=== PATIENT | male | born 1945 | race Caucasian/White ===

== ENCOUNTER → 2023-08-22 09:50 | Outpatient (REF) | payer MEDICARE, SELFPAY ==
[2023-08-22 10:53] LABS: % Basophils 0.5 % (0-2); % Eosinophils 2.3 % (0-6); % Immature Granulocytes 0.6 % (0-0.5); % Lymphocytes 23.1 % (20.5-51.1); % Monocytes 8.3 % (1.7-9.3); % Neutrophils 65.2 % (42.2-75.2); Absolute Eosinophils 0.2 10^3/uL (0-0.7); Absolute Immature Granulocytes 0.1 10^3/uL (0-0.05); Absolute Monocytes 0.7 10^3/uL (0.1-0.6); Absolute Neutrophils 5.8 10^3/uL (1.4-6.5); Hematocrit 41.5 % (39.0-52.0); Hemoglobin 13.5 g/dL (13.0-18.0); Mean Corp Hgb Conc. 32.5 g/dL (33.0-37.0); Mean Corpuscular Hgb 27.9 pg (27.0-31.0); Mean Corpuscular Volume 85.7 fL (80.0-94.0); Nucleated Red Blood Cells % 0 % (-); Platelet Count 178 10^3/uL (130-400); Red Blood Cell Count 4.84 10^6/uL (4.70-6.10); Red Cell Dist. Width 14.1 % (11.5-14.5); White Blood Cell Count 8.8 10^3/uL (4.8-10.8)
[2023-08-22 11:05] LABS: ALT (SGPT) 20 U/L (0-50); AST (SGOT) 21 U/L (17-59); Albumin 3.8 g/dl (3.5-5.0); Alkaline Phosphatase 90 U/L (38-126); Blood Urea Nitrogen 17 mg/dl (9-20); Calcium 8.5 mg/dl (8.4-10.2); Carbon Dioxide 25 mmol/L (22-30); Chloride 106 mmol/L (98-107); Glucose 93 mg/dl (70-99); HDL Cholesterol 55 mg/dl; Iron 48 ug/dl (49-181); LDL Cholesterol, Calculated 64 mg/dl; Potassium 4.3 mmol/L (3.5-5.1); Sodium 137 mmol/L (135-145); Total Bilirubin 0.4 mg/dl (0.2-1.3); Total Cholesterol 132 mg/dl (50-199); Total Protein 6.1 g/dl (6.3-8.2); Triglyceride 66 mg/dl (10-149); Very Low Density Lipoprotein 13 mg/dl (0-30); eGFR > 60.00
[2023-08-22 11:15] LABS: Percent Saturation 16 % (20-50); Total Iron Binding Capacity 286 ug/dl (261-462)
[2023-08-22 15:34] LABS: Urine Albumin Negative (Neg - Trace); Urine Bilirubin Negative (Negative); Urine Character Clear (Clear); Urine Color Yellow; Urine Glucose Negative (Negative); Urine Ketone Negative (Negative); Urine Leukocyte Negative (Negative); Urine Nitrite Negative (Negative); Urine Occult Blood Negative (Negative); Urine Specific Gravity 1.025 (<1.030); Urine Urobilinogen Negative (Neg - 1+)
== END ==
LOC: OLABLV 09:50
PROVIDERS: ATTENDING PHYSICIAN Internal Medicine Geriatric Medicine
DX: I10 Essential (primary) hypertension (principal); N40.0 Benign prostatic hyperplasia without lower urinary tract symptoms; E78.2 Mixed hyperlipidemia; D50.9 Iron deficiency anemia, unspecified; R53.83 Other fatigue; F32.2 Major depressive disorder, single episode, severe without psychotic features; M25.552 Pain in left hip; Z13.31 Encounter for screening for depression; Z99.89 Dependence on other enabling machines and devices; R09.81 Nasal congestion
CPT/HCPCS: 36415; 80053; 80061; 81003; 82728; 83540; 83550; 85025

== ENCOUNTER → 2023-09-03 07:33 | Outpatient (REF) | payer MEDICARE, SELFPAY | LOC: RAD 07:33 | PROVIDERS: ATTENDING PHYSICIAN Neurological Surgery; FAMILY PHYSICIAN Internal Medicine Geriatric Medicine | DX: G91.2 (Idiopathic) normal pressure hydrocephalus (principal) | CPT/HCPCS: 70450 ==

== ENCOUNTER → 2023-10-09 13:18 | Outpatient (REF) | payer MEDICARE, SELFPAY | LOC: RAD 13:18 | PROVIDERS: ATTENDING PHYSICIAN Nurse Practitioner Family; FAMILY PHYSICIAN Internal Medicine Geriatric Medicine | DX: R05.3 Chronic cough (principal); R09.89 Other specified symptoms and signs involving the circulatory and respiratory systems | CPT/HCPCS: 71046 ==

== ENCOUNTER → 2024-05-23 10:37 | Outpatient (REF) | payer MEDICARE, SELFPAY ==
[2024-05-23 11:18] LABS: % Basophils 0.6 % (0-2); % Immature Granulocytes 0.4 % (0-0.5); % Lymphocytes 24.3 % (20.5-51.1); % Monocytes 7.4 % (1.7-9.3); % Neutrophils 63.3 % (42.2-75.2); Absolute Basophils 0.1 10^3/uL (0-0.2); Absolute Eosinophils 0.3 10^3/uL (0-0.7); Absolute Lymphocytes 2.1 10^3/uL (1.2-3.4); Absolute Monocytes 0.6 10^3/uL (0.1-0.6); Absolute Neutrophils 5.4 10^3/uL (1.4-6.5); Hematocrit 41.8 % (39.0-52.0); Hemoglobin 13.7 g/dL (13.0-18.0); Mean Corp Hgb Conc. 32.8 g/dL (33.0-37.0); Mean Corpuscular Hgb 28.8 pg (27.0-31.0); Mean Corpuscular Volume 87.8 fL (80.0-94.0); Mean Platelet Volume 9.6 fL (7.4-10.4); Nucleated Red Blood Cells % 0 % (-); Platelet Count 167 10^3/uL (130-400); Red Blood Cell Count 4.76 10^6/uL (4.70-6.10); Red Cell Dist. Width 13.5 % (11.5-14.5); White Blood Cell Count 8.6 10^3/uL (4.8-10.8)
[2024-05-23 11:39] LABS: ALT (SGPT) 17 U/L (0-50); AST (SGOT) 18 U/L (17-59); Albumin 3.8 g/dl (3.5-5.0); Alkaline Phosphatase 82 U/L (38-126); Blood Urea Nitrogen 15 mg/dl (9-20); Calcium 8.6 mg/dl (8.4-10.2); Carbon Dioxide 26 mmol/L (22-30); Chloride 103 mmol/L (98-107); Glucose 100 mg/dl (70-99); HDL Cholesterol 46 mg/dl; Iron 63 ug/dl (49-181); LDL Cholesterol, Calculated 57 mg/dl; Potassium 4.3 mmol/L (3.5-5.1); Sodium 137 mmol/L (135-145); Total Bilirubin 0.5 mg/dl (0.2-1.3); Total Cholesterol 115 mg/dl (50-199); Triglyceride 61 mg/dl (10-149); Very Low Density Lipoprotein 12 mg/dl (0-30); eGFR > 60.00
[2024-05-23 11:44] LABS: Vitamin D, 25-OH*** 63.6 ng/mL (30-80)
[2024-05-23 11:49] LABS: Percent Saturation 22 % (20-50); Total Iron Binding Capacity 283 ug/dl (261-462)
[2024-05-23 11:58] LABS: TSH Reflex To Free T4 2.05 uIU/ml (0.47-4.68)
== END ==
LOC: OLABLV 10:37
PROVIDERS: ATTENDING PHYSICIAN Nurse Practitioner Family
DX: I10 Essential (primary) hypertension (principal); N40.0 Benign prostatic hyperplasia without lower urinary tract symptoms; E78.2 Mixed hyperlipidemia; D50.9 Iron deficiency anemia, unspecified; R53.83 Other fatigue; F32.2 Major depressive disorder, single episode, severe without psychotic features; M25.552 Pain in left hip
CPT/HCPCS: 36415; 80053; 80061; 82306; 82728; 83540; 83550; 84443; 85025

== ENCOUNTER 2024-06-04 13:06 | Inpatient (IN) | payer OTHER, SELFPAY ==
[2024-06-04] VITALS (13 sets, daily range): BP systolic 90–132; BP diastolic 53–79; BMI 35.7; BMI 35.5
--- NOTE | 2024-06-04 09:39 | ED.GENMED ---
History of Present Illness
General
Chief Complaint: Breathing Problem
Source: patient
Exam Limitations: none
Time Seen by Provider: 06/04/24 09:33
Nursing documentation reviewed up to this point in time: agreed with
History of Present Illness
History of Present Illness:
Patient presents to ED from care home secondary to worsening cough with shortness of breath over the past 3 days. Upon arrival, patient is found to be febrile and hypoxic. Patient denies chest pain. Denies nausea, vomiting, or diarrhea.
Denies headache. Denies sore throat. Denies sick contact. Denies recent travel. Denies back pain. Patient does report decreased appetite.
Past History
Past History
ED Past Medical History: HTN, Hypercholesterolemia and Other (BPH)
ED Past Surgical History: None
Social History
Tobacco: Non-smoker
Alcohol: None
Drug: None
Living: assisted living
Review of Systems
Review of Systems
Allergies reviewed?: Yes
All Other Systems: ROS reviewed and negative except as documented in HPI and ROS
Constitutional: Reports fever
EENT: Reports no symptoms
Respiratory: Reports cough and trouble breathing
Cardiac: Reports no symptoms
ABD/GI: Reports no symptoms
Musculoskeletal: Reports no symptoms
Skin: Reports no symptoms
Neurological: Reports no symptoms
Phy Exam
Physical Exam
Physical Exam:
Physical Exam
General: moderate respiratory distress, not acutely ill. febrile
Head: nc/at. eomi
Neck: supple. no meningeal signs.
Heart: s1/s2 regular rate and rhythm, no murmur. equal radial pulses.
Lungs: moderate respiratory distress. diminished breath sounds bilaterally
Abdomen: normal bowel sounds. not tender.
Neuro: alert and oriented. no focal neurological deficits
Skin: no rash
Psychiatric: well kept. interactive and cooperative
Extremities: LE b/l nonpitting edema. no calf tenderness.
Scores
Heart Failure Risk
Heart Failure Risk Score: Not Applicable
Course
Orders/Labs/Results
Orders:
Orders
06/04/24 09:42
COVID-19 Antigen Urgent
Source: Nasal Swab
Complete Blood Count/With Diff Urgent
Manual Differential Urgent
NT-proBNP Urgent
Influenza A+B Rapid Molecular Urgent
MACKENZIE Source: Nasal Swab
Specimen Description:
Portable Chest Xray [CR Chest Portable - 1 View] Urgent
Comment:
Reason For Exam: sob
Reason Study Needs to be Portable: Unable to Transport
06/04/24 10:01
Acetaminophen [Tylenol] 650 mg PO NOW STA
06/04/24 10:02
Respiratory Syncytial Virus Urgent
MACKENZIE Source: Nasal Swab
Specimen Description:
Date Specimen was Collected: 06/04/24
Time Specimen was Collected: 09:44
06/04/24 10:03
Lactic Acid Q4H
Comment: CANCEL 2nd LACTIC ACID IF 1st LACTIC ACID IS LESS THAN 2
Blood Culture Q30M
MACKENZIE Source: Blood/Venous
Specimen Description:
Blood Culture Q30M
MACKENZIE Source: Blood/Venous
Specimen Description:
06/04/24 10:09
Guaifenesin/Codeine Solution [Robitussin AC] 10 ml PO NOW STA
Piperacillin/Tazo 3.375 Gram [Zosyn] 3.375 gram in 50 ml IV NOW
06/04/24 10:10
0.9% Sodium Chloride 500 ml [Nss] 500 ml IV BOLUS
06/04/24 10:19
Comprehensive Metabolic Panel Urgent
Magnesium Urgent
06/04/24 10:39
Vancomycin [Vancocin] 2,000 mg 0.9% Sodium Chloride 500 ml [Nss] 500 ml IV NOW
06/04/24 11:13
CT Chest PE Study Stat
Comment:
Reason For Exam: Progressive Hypoxia. Concern for PE.
06/04/24 12:26
Admit/Transfer Patient As Directed
Co-Sign Provider:
Level of Care: Inpatient admission
Assign to:: IMU- Intermediate Care
Physician / Group: Dr. Ko Lazaro/Hospitalists
Diagnosis: Acute Hypoxic Respiratory Failure
Reason for Hospitalization: Acute Hypoxic Respiratory Failure
Expected length of stay greater than two midnights?: Yes
ELOS- Estimated Length of Stay in days: 3
I certify the patient meets the requirements for IP care: Yes
06/04/24 12:30
Code Status As Directed
Resuscitation Status: Full Code
06/04/24 12:37
Sputum Culture [Respiratory Culture/Gram Stain] Stat
MACKENZIE Source: Sputum
Specimen Description:
06/04/24 12:54
PULMONARY CONSULT Routine
Consulting Provider: Leeroy Franco
Was physician already notified: Yes
Reason for consult: Hypoxic Respiratory Failure, high flow oxygen, bronchial narrowing
06/04/24 13:00
Guaifenesin [Mucinex] 1,200 mg PO Q12
06/04/24 14:00
Cefepime HCl [Maxipime] 2,000 mg IV Q8H
Abnormal Lab Results
06/04/24 06/04/24
09:42 10:19
WBC 19.1 H 10^3/uL
(4.8-10.8)
Abs Neuts (Manual) 18.1 H 10^3/uL
(1.4-6.5)
Segmented Neutrophils 87 H %
(42-75)
Band Neutrophils 8 H %
(0-3)
Lymphocytes (Manual) 1 L %
(20-51)
Glucose 146 H mg/dl
(70-99)
Total Bilirubin 2.2 H mg/dl
(0.2-1.3)
06/04/24 09:42
06/04/24 10:19
Vital Signs
Initial and Last Documented VS:
Initial Vital Signs
Pulse Resp Pulse Ox
115 39 88
06/04/24 09:35 06/04/24 09:35 06/04/24 09:35
Last Documented Vital Signs
Temp Pulse Resp BP Pulse Ox
99.9 F 82 24 100/65 95
06/04/24 14:16 06/04/24 16:00 06/04/24 16:00 06/04/24 16:00 06/04/24 16:00
MDM/Problems Addressed
MDM/Problems Addressed:
History, exam, and chest x-ray consistent with pneumonia. Patient's hypoxia improved on mid flow oxygen. Patient will be started on broad-spectrum antibiotics and admitted to hospital for further evaluation and treatment.
Due to worsening hypoxia during observation, patient will be switched to hi-flow oxygen.
Critical care statement: A total of 30 minutes of critical care time was provided for this patient. This includes management of unstable vital signs, evaluation of the patient at bedside, reviewing the patient's pertinent medical records, review of
old EKGs and review of pertinent medical records. This time with separate from time utilized to perform the aforementioned documented procedures
*Critical Care Note
Total Time (30-74mins, 75-104mins- exclusive of procedures): 30 min
ED Attending Note
-
Portions of this chart may have been created with voice recognition software.� Occasional wrong word or��sound alike� substitutions may have occurred due to the inherent limitations of voice recognition software.
Discharge Plan
Departure
Patient Disposition: Admit
Date of Disposition: 06/04/24
Time of Disposition: 10:34
Admit to: IMU
Presentation/result/management discussed w/ accepting MD/DO: Hospitalist
Discharge Problem:
Pneumonia, Hypoxia
Interventions
Interventions:
*Risk Screen - Suicide Last Done: 06/04/24 09:47
*General Assessment Last Done: 06/04/24 09:46
*Neglect/Abuse Screening Last Done: 06/04/24 09:46
ED- Fall Risk Assessment Last Done: 06/04/24 09:46
*ED COVID-19 Vaccine History Last Done: 06/04/24 09:46
ED- Cardiac Assessment Last Done: 06/04/24 10:00
ED- Pulmonary Assessment Last Done: 06/04/24 10:00
[2024-06-04 10:10] LABS: Hematocrit 42.9 % (39.0-52.0); Hemoglobin 14.6 g/dL (13.0-18.0); Mean Corpuscular Hgb 28.7 pg (27.0-31.0); Mean Corpuscular Volume 84.4 fL (80.0-94.0); Mean Platelet Volume 9.8 fL (7.4-10.4); Platelet Count 136 10^3/uL (130-400); Red Blood Cell Count 5.08 10^6/uL (4.70-6.10); Red Cell Dist. Width 13.5 % (11.5-14.5); White Blood Cell Count 19.1 10^3/uL (4.8-10.8)
[2024-06-04 10:21] LABS: NT-proBNP 214 pg/ml
[2024-06-04 10:24] LABS: COVID-19 Antigen Negative (Negative)
[2024-06-04 10:27] LABS: Absolute Neutrophils -Man Diff 18.1 10^3/uL (1.4-6.5); Band Neutrophils 8 % (0-3); Lymphocytes 1 % (20-51); Monocytes 4 % (2-9); Normal RBC Morphology Yes; Platelets Checked Yes; Segmented Neutrophils 87 % (42-75); Total Cells Counted 100
[2024-06-04] MEDS: ROBITUSSIN AC 10 ML PO (10:33)
[2024-06-04] MEDS: NSS 500 IV (10:33)
[2024-06-04] MEDS: TYLENOL 650 MG PO (10:33)
[2024-06-04] MEDS: ZOSYN 50 IV (10:35)
[2024-06-04 10:41] LABS: Lactic Acid 1.8 mmol/L (0.7-2.0)
[2024-06-04 10:42] LABS: ALT (SGPT) 17 U/L (0-50); AST (SGOT) 20 U/L (17-59); Albumin 3.9 g/dl (3.5-5.0); Alkaline Phosphatase 98 U/L (38-126); Blood Urea Nitrogen 18 mg/dl (9-20); Calcium 8.6 mg/dl (8.4-10.2); Carbon Dioxide 24 mmol/L (22-30); Chloride 99 mmol/L (98-107); Estimated Creatinine Clearance 61 ml/min; Glucose 146 mg/dl (70-99); Magnesium 2.2 mg/dl (1.6-2.3); Potassium 3.8 mmol/L (3.5-5.1); Sodium 137 mmol/L (135-145); Total Bilirubin 2.2 mg/dl (0.2-1.3); Total Protein 6.5 g/dl (6.3-8.2); eGFR > 60.00
--- NOTE | 2024-06-04 11:15 | HPS.HSE ---
Family Physician
-
Family Physician: Theo Adhikari
Chief Complaint
-
Cough and shortness of breath
History of Present Illness
78 y/o male with past medical history of hypertension, hypercholesterolemia, prostate cancer, benign prostatic hyperplasia, overactive bladder, urinary incontinence, normal pressure hydrocephalus (was followed by Dr. Ashley Reno outpatient), and
depression presented to the emergency department with worsening cough and shortness of breath over the past ~3 days prior to arrival. Patient was found to be hypoxic and febrile. Patient's brother Luis Eduardo was present in the emergency room and assisted
with the history. Luis Eduardo said patient had come from his [place] [facility] facility to his (Luis Eduardo') home 3 days ago to spend time with family, and then returned not too long after. Someone in the family gathering was sick per Luis Eduardo. Patient says he was feeling a
little sick over the weekend, but his cough and shortness of breath was developing and today it became worse prompting him to come to the ER. He denied any history of pulmonary or cardiac disease. He denied any chest pain, dizziness, loss of
consciousness or pain or swelling in his legs.
Medical History
Past Medical History
Past Medical History: Reports Other (As per HPI above)
Past Surgical History: Reports Orthopedic (Bilateral Hip Replacement)
Social History
Tobacco: Former Smoker (Smoked Pipe for 30 years, quit many years ago)
Alcohol: Occasional
Drug: None
Family History
Family History: Not pertinent
Allergies / Home Medications
Allergies reflects when Allergies were last updated in [employer].
Home Medications with original date entered in [employer]
Allergy/Medication List:
Allergies
Allergy/AdvReac Type Severity Reaction Status Date / Time
No Known Allergies Allergy Verified 06/04/24 09:46
Home Medications
silodosin 8 mg capsule (Rapaflo) 8 mg PO DAILY Urinary issue 12/16/19
acetaminophen 325 mg tablet 650 mg PO Q4H PRN fever 04/23/21
atorvastatin 40 mg tablet 40 mg PO Q48H High cholesterol 04/23/21
sertraline 50 mg tablet 50 mg PO DAILY Depression 04/23/21
bupropion HCl 150 mg 24 hr tablet, extended release (Wellbutrin XL) 150 mg PO DAILY Depression 05/08/22
ferrous sulfate 325 mg (65 mg iron) tablet 325 mg PO DAILY Supplement 05/08/22
loperamide 2 mg tablet 4 mg PO PRN PRN DIARRHEA 05/08/22
psyllium husk 0.52 gram capsule 0.52 g PO BID Constipation 05/08/22
cyanocobalamin (vitamin B-12) 1,000 mcg tablet (Vitamin B-12) 2,000 mcg PO DAILY Supplement 05/24/22
cholecalciferol (vitamin D3) 25 mcg (1,000 unit) tablet 50 mcg PO DAILY 07/14/22
cetirizine 10 mg tablet (Zyrtec) 10 mg PO HS 06/04/24
docusate sodium 100 mg capsule 100 mg PO BIDPRN PRN constipation 06/04/24
finasteride 5 mg tablet 5 mg PO DAILY 06/04/24
guaifenesin 600 mg tablet, extended release 12 hr (Mucinex) 600 mg PO DAILY 06/04/24
ipratropium bromide 21 mcg (0.03 %) nasal spray 2 spray intranasal BID 06/04/24
losartan 25 mg tablet 25 mg PO QPM 06/04/24
polyethylene glycol 3350 17 gram oral powder packet (Miralax) 17 g PO DAILYPRN PRN constipation 06/04/24
sodium chloride 0.65 % nasal spray aerosol (Saline Nasal Mist) 2 spray intranasal QID 06/04/24
triamcinolone acetonide 0.1 % topical cream 1 applic topical BIDPRN PRN ear eczema 06/04/24
Review of Systems
-
A 12 point ROS was completed and negative except as noted: Yes
Physical Exam
Vital Signs
Vital Signs
Temp Pulse Resp BP Pulse Ox
103.3 F H 112 28 125/74 80
06/04/24 10:02 06/04/24 10:30 06/04/24 10:30 06/04/24 10:00 06/04/24 10:30
Physical Exam
General: Respiratory Distress
HEENT: NormoCephalic and Moist mucous membranes
Respiratory: Rhonchi (Right>Left)
Cardiac: S1/S2, Regular Rhythm and Tachycardia
GI: Soft, Non Tender and Normal Bowel Sounds
Musculoskeletal: No Cyanosis and No Edema
Skin: Warm and Dry
Neuro: Awake, Alert and AO x 3
Psych: Calm and Intact Judgment/Insight
Laboratory Results
-
06/04/24 09:42
06/04/24 10:19
Laboratory Results
Lactic Acid 1.8 mmol/L (0.7-2.0) 06/04/24 10:03
Total Bilirubin 2.2 mg/dl (0.2-1.3) H 06/04/24 10:19
AST 20 U/L (17-59) 06/04/24 10:19
ALT 17 U/L (0-50) 06/04/24 10:19
Alkaline Phosphatase 98 U/L (38-126) 06/04/24 10:19
Impression/Plan
-
Assessment/Plan
Acute Hypoxic Respiratory Failure
Concern for Pneumonia
Fever
-Requiring high flow oxygen in the ED
-Chest X-Ray per radiologist's report suggested right basilar airspace opacity concerning for pneumonia and possible small right pleural fluid
-Vancomycin and Zosyn ordered in the ER, continue Vanc but start Cefepime instead of continuing Zosyn
-Check CT PE
-Sputum culture
-Aspiration Precautions
-Mucinex
-Duoneb QID+prn nebulized bronchodilators will consider inhaled hypertonic saline
-Given patient is needing a high flow oxygen with use of accessory muscles, will place patient in IMU and consult pulmonary, appreciate their recommendations
Dyspnea on Exertion for Months
-As reported by patient's brother Michael
-Echo, although proBNP was quite low
-Will likely need stress test and PFTs/pulmonary evaluation outpatient
History of Influenza A infection
Essential hypertension
-Currently blood pressure is in the 90s to low 100s systolic
-Hold off on home Losartan for now
Hypercholesterolemia
-Continue home Atorvastatin
Depression
-Continue Bupropion and Sertraline
BPH
History of Prostate Cancer
-Continue Rapaflo and Finasteride
Normal pressure hydrocephalus (was being followed by Dr. Ashley Reno outpatient)
-MEDICAL DETAILIST shunt in place (present on chest x-ray)
Overactive bladder
History of urinary incontinence
Depression
Code status: Full Code (I confirmed this with patient's brother Michael in the presence of the patient)
DVT prophylaxis: Lovenox
Acute Hypoxic Respiratory Failure needing high-flow oxygen is a high-risk encounter.
[2024-06-04] MEDS: VANCOCIN 540 MG IV (11:35)
[2024-06-04] MEDS: MUCINEX 1200 MG PO ×2 (14:06→20:12)
--- NOTE | 2024-06-04 14:23 | PHA.VAN.IN ---
Assessment
- Assessment
Renal Function: Appears similar to baseline
Renal Function may be Overestimated due to: BMI 36
Maximum Temperature: 103.3 - 06/04/24 @ 10:02
Concomitant Antimicrobials: cefepime
AUC Dosing Plan
- Dosing Variables
Dosing Weight (kg): 91.4
Dosing CrCl (ml/min): 61
Vd coefficient (L/kg): 0.6
- Empiric Dosing
Initial / Loading Dose: 2000 mg - 06/04 11:35
Maintenance Regimen: 1500 mg q24h to start 0600 06/05
Estimated AUC (mcg*h/mL): 518
Estimated Peak (mcg*h/mL): 37.3
Estimated Trough (mcg/ml): 10.8
Estimated Half Life (H): 12.6
- Monitoring
No levels ordered at this time: consider levels as pt nears steady state
Pharmacokinetics Vancomycin I
- -
Patient Age: 78
Patient Sex: Male
Vancomycin Day #: 1
Indication: Pulmonary/Respiratory
Requesting Provider: Roman
Height / Weight:
Height 5 ft 3 in
Actual Weight 91.4 kg
Pertinent Past Medical History: BMI ~36
- Vital Signs / Lab Results
Temp Pulse Resp BP Pulse Ox
99.9 F 87 15 99/79 94
06/04/24 14:16 06/04/24 13:30 06/04/24 13:30 06/04/24 13:00 06/04/24 14:16
Lab Results - Hematology
06/04/24
09:42
WBC 19.1 H
Band Neutrophils 8 H
Lab Results - Chemistry
06/04/24 06/04/24
09:42 10:19
BUN Cancelled 18
Creatinine Cancelled 1.0
Estimated Creat Clear Cancelled 61
Albumin Cancelled 3.9
06/04/24
10:03
Lactic Acid 1.8
Microbiology Results
06/04/24 10:02 Respiratory Syncytial Virus Culture - Final
Nasal Swab Negative for Respiratory Syncytial Virus.
A false negative result may be obtained with a specimen
collected early in the acute phase. If symptoms persist, a
new specimen should be tested.
06/04/24 09:42 Influenza Types A & B (FRANNY) - Final
Nasal Swab Negative for Influenza A & B, NAAT
Negative results must be combined with clinical observations
and patient history.
Nucleic Acid Amplification test (NAAT)performed on the
[employer] platform.
[2024-06-04 14:34] LABS: Venous Blood Gas B.E. -2.4 mmol/L (-4 to +4); Venous Blood Gas HCO3 24.2 mmol/L (22-27); Venous Blood Gas O2 Sat % 90.8 %; Venous Blood Gas pCO2 48 mmHg (35-48); Venous Blood Gas pH 7.31 (7.32-7.43); Venous Blood Gas pO2 58 mmHg (30-50)
[2024-06-04] MEDS: MAXIPIME 2000 MG IV ×2 (15:15→22:08)
[2024-06-04] MEDS: STERILE WATER FOR INJECTION 10 ML IV ×2 (15:15→22:08)
[2024-06-04] MEDS: DUONEB INH (18:05)
--- NOTE | 2024-06-04 18:31 | CON.PUL ---
Consultation
Consultation Request
Date/Time Consultation Requested: 06/04/2024
Date/Time Consultation Performed: 06/04/2024
Requesting Provider: Dr. Garcia
Performing Provider: Dr. Leeroy Vaughan
Reason for Consultation: acute hypoxemic respiratory failure due to pneumonia
Medical History
-
History of Present Illness:
78-year-old male with past medical history significant for hypertension, hypercholesterolemia, prostate cancer, benign BPH, overactive bladder, urinary incontinence, normal pressure hydrocephalus and depression who presented to the emergency room
with worsening cough and shortness of breath for the past 3 days. Found to be febrile and hypoxemic. Has leukocytosis.
Patient required high flow oxygen to maintain pulse ox above 90%.
Due to worsening respiratory symptoms and shortness of breath he decided to come to the emergency room.
CT chest chest demonstrated significant pneumonia with mediastinal lymphadenopathy.
[facility]
Past Medical History
Past Medical History: Other ( See assessment and plan)
Social History
Tobacco: Former Smoker (Pipe, many years ago)
Alcohol: Occasional
Drug: None
Family History
Family History: Reviewed & Not Pertinent
Allergies / Home Medications
Allergies
Allergy/AdvReac Type Severity Reaction Status Date / Time
No Known Allergies Allergy Verified 06/04/24 09:46
Home Medications
�Medication �Instructions �Recorded �Confirmed �Last Taken �Type
silodosin 8 mg capsule (Rapaflo) 8 mg PO DAILY Urinary issue 12/16/19 06/04/24 07/14/22 History
acetaminophen 325 mg tablet 650 mg PO Q4H PRN fever 04/23/21 06/04/24 Unknown History
atorvastatin 40 mg tablet 40 mg PO Q48H High cholesterol 04/23/21 06/04/24 07/13/22 History
sertraline 50 mg tablet 50 mg PO DAILY Depression 04/23/21 06/04/24 07/14/22 History
bupropion HCl 150 mg 24 hr tablet, 150 mg PO DAILY Depression 05/08/22 06/04/24 07/14/22 History
extended release (Wellbutrin XL)
ferrous sulfate 325 mg (65 mg 325 mg PO DAILY Supplement 05/08/22 06/04/24 07/14/22 History
iron) tablet
loperamide 2 mg tablet 4 mg PO PRN PRN DIARRHEA 05/08/22 06/04/24 07/14/22 History
psyllium husk 0.52 gram capsule 0.52 g PO BID Constipation 05/08/22 06/04/24 07/14/22 History
cyanocobalamin (vitamin B-12) 2,000 mcg PO DAILY Supplement 05/24/22 06/04/24 07/14/22 History
1,000 mcg tablet (Vitamin B-12)
cholecalciferol (vitamin D3) 25 50 mcg PO DAILY Supplement 07/14/22 06/04/24 07/14/22 History
mcg (1,000 unit) tablet
cetirizine 10 mg tablet (Zyrtec) 10 mg PO HS Allergies 06/04/24 06/04/24 Unknown History
docusate sodium 100 mg capsule 100 mg PO BIDPRN PRN constipation 06/04/24 06/04/24 Unknown History
finasteride 5 mg tablet 5 mg PO DAILY prostate issues 06/04/24 06/04/24 Unknown History
guaifenesin 600 mg tablet, 600 mg PO DAILY Congestion 06/04/24 06/04/24 Unknown History
extended release 12 hr (Mucinex)
ipratropium bromide 21 mcg (0.03 2 spray intranasal BID Congestion 06/04/24 06/04/24 Unknown History
%) nasal spray
losartan 25 mg tablet 25 mg PO QPM Blood Pressure 06/04/24 06/04/24 Unknown History
polyethylene glycol 3350 17 gram 17 g PO DAILYPRN PRN constipation 06/04/24 06/04/24 Unknown History
oral powder packet (Miralax)
sodium chloride 0.65 % nasal spray 2 spray intranasal QID Congestion 06/04/24 06/04/24 Unknown History
aerosol (Saline Nasal Mist)
triamcinolone acetonide 0.1 % 1 applic topical BIDPRN PRN ear 06/04/24 06/04/24 Unknown History
topical cream eczema
Review of Systems
-
History Source: Patient
All other systems: Negative unless noted
Vitals / Labs / Diagnostic Testing
Vital Signs
Temp Pulse Resp BP Pulse Ox
99.6 F 85 23 106/68 95
06/04/24 18:10 06/04/24 18:07 06/04/24 18:07 06/04/24 18:07 06/04/24 18:21
Lab Data
06/04/24 09:42
06/04/24 10:19
Microbiology
06/04/24 10:02 Nasal Swab Respiratory Syncytial Virus Culture - Final
Negative for Respiratory Syncytial Virus.
A false negative result may be obtained with a specimen
collected early in the acute phase. If symptoms persist, a
new specimen should be tested.
06/04/24 09:42 Nasal Swab Influenza Types A & B (FRANNY) - Final
Negative for Influenza A & B, NAAT
Negative results must be combined with clinical observations
and patient history.
Nucleic Acid Amplification test (NAAT)performed on the
[employer] platform.
Diagnostic Testing:
Physical Exam
-
HEENT: Normocephalic
Cardiovascular: S1/S2
Respiratory: Wheeze (n) and Rales
GI: Soft and Non Distended
Neurology: Awake, Oriented and AO x 3
Skin: Warm
General: Respiratory Distress (Mild with activity and conversation)
Assessment
-
Acute hypoxemic respiratory failure requiring Midflow 12L and partial NRB mask.
Severe bilateral pneumonia
Abnormal CT chest: Reviewed, moderate bilateral pneumonia right greater than left, no significant pleural effusion. Moderate mediastinal and right hilar lymphadenopathy reactive versus malignant. Central bronchial narrowing secondary to extrinsic
compression by hilar lymphadenopathy.
Leukocytosis
Conditions present prior admission.
Hypercholesterolemia
Hypertension
History of prostate cancer
BPH
Overactive bladder
Urinary incontinence
Normal pressure hydrocephalus
Depression
History of bilateral hip replacement
Smoked pipe 30 years ago but quit many years ago
Assessment and plan:
Respiratory status is tenuous
Patient is on mid flow [id number] pulse ox at rest 94%, mild distress with conversation-maintain FiO2 to keep pulse ox above 90%
CT of the chest showed extensive bilateral pneumonia with mediastinal hilar lymphadenopathy.
Clinical picture suggest bacterial pneumonia
-
Agree with broad-spectrum antibiotics vancomycin/Zosyn. Will add atypical coverage as well
Influenza negative
COVID-negative
Obtain Legionella and pneumococcal antibodies in the urine
Sputum culture
Blood culture
-
Secretion clearance interventions with nebulizer
Acapella device if possible
Mucinex
-
Patient will need pulmonary follow-up to evaluate mediastinal lymphadenopathy is once pneumonia is treated.
Will need short-term repeat CT chest
Information will be left in chart
-
Cardiac etiology not highly suspected. Echocardiogram has been ordered.
EKG reviewed, normal sinus rhythm. LVH cannot rule out anterior infarct.
proBNP in the 200's
Troponin pending
-
Patient also has reported dyspnea for many months. Will need to be addressed in the future.
-
Will follow
[2024-06-04] MEDS: LOVENOX 40 MG SC (18:38)
[2024-06-04] MEDS: OCEAN, SALINE MIST 1 SPRAYS NASAL ×2 (18:38→22:08)
--- NOTE | 2024-06-04 19:02 | PTCARENOTE ---
Received pt from ED, pulled over to bed. AOx3. Denies pain. On PNRB 15L, placed on 12L midflow, sating 94%. LS coarse throughout. Occ cough, specimen cup given for sample, not produced yet. Pt reports green/yellow sputum. VSS. Full assessment and
admission as documented.
[2024-06-04] MEDS: ZITHROMAX INFUSION 250 IV (19:15)
[2024-06-04] MEDS: DUONEB 3 ML INH (19:25)
[2024-06-04 19:37] LABS: Troponin I 0.035 ng/ml
[2024-06-04] MEDS: METAMUCIL, KONSYL 1 PACKET PO (20:11)
[2024-06-04] MEDS: LIPITOR 40 MG PO (20:12)
[2024-06-05] VITALS (10 sets, daily range): BP systolic 104–150; BP diastolic 58–130
[2024-06-05 01:08] LABS: Troponin I 0.023 ng/ml
[2024-06-05] MEDS: VANCOCIN 530 MG IV (05:42)
[2024-06-05] MEDS: STERILE WATER FOR INJECTION 10 ML IV ×3 (05:44→21:47)
[2024-06-05] MEDS: MAXIPIME 2000 MG IV ×3 (05:44→21:46)
--- NOTE | 2024-06-05 06:12 | PTCARENOTE ---
Received pt at change of shift. AAOx3, forgetful at times. Currently on 12L MF; STEWART and at rest. Sputum sample sent to lab. Trop elevated and reported to NOHEMI. Follow up trops completed. Pt offers no complaints at this time. Resting in bed
with call hernandez in reach.
[2024-06-05 06:25] LABS: % Basophils 0.3 % (0-2); % Eosinophils 0.5 % (0-6); % Immature Granulocytes 0.7 % (0-0.5); % Neutrophils 85.5 % (42.2-75.2); Absolute Eosinophils 0.1 10^3/uL (0-0.7); Absolute Immature Granulocytes 0.1 10^3/uL (0-0.05); Absolute Lymphocytes 1.2 10^3/uL (1.2-3.4); Absolute Monocytes 0.8 10^3/uL (0.1-0.6); Absolute Neutrophils 12.9 10^3/uL (1.4-6.5); Hematocrit 37.3 % (39.0-52.0); Hemoglobin 12.2 g/dL (13.0-18.0); Mean Corp Hgb Conc. 32.7 g/dL (33.0-37.0); Mean Corpuscular Hgb 28.4 pg (27.0-31.0); Mean Corpuscular Volume 86.9 fL (80.0-94.0); Mean Platelet Volume 9.8 fL (7.4-10.4); Nucleated Red Blood Cells % 0 % (-); Platelet Count 130 10^3/uL (130-400); Red Blood Cell Count 4.29 10^6/uL (4.70-6.10); Red Cell Dist. Width 13.6 % (11.5-14.5); White Blood Cell Count 15.1 10^3/uL (4.8-10.8)
[2024-06-05 06:44] LABS: Blood Urea Nitrogen 15 mg/dl (9-20); Calcium 8.1 mg/dl (8.4-10.2); Carbon Dioxide 23 mmol/L (22-30); Chloride 103 mmol/L (98-107); Estimated Creatinine Clearance 87 ml/min; Glucose 110 mg/dl (70-99); Magnesium 2.5 mg/dl (1.6-2.3); Potassium 3.9 mmol/L (3.5-5.1); Sodium 136 mmol/L (135-145); eGFR > 60.00
[2024-06-05 06:45] LABS: Troponin I 0.021 ng/ml
[2024-06-05] MEDS: DUONEB 3 ML INH ×4 (07:18→19:26)
[2024-06-05] MEDS: ZOLOFT 50 MG PO (08:13)
[2024-06-05] MEDS: FLOMAX 0.4 MG PO (08:13)
[2024-06-05] MEDS: METAMUCIL, KONSYL 1 PACKET PO ×2 (08:13→20:18)
[2024-06-05] MEDS: VITAMIN B-12 2000 MCG PO (08:13)
[2024-06-05] MEDS: FEOSOL 325 MG PO (08:13)
[2024-06-05] MEDS: WELLBUTRIN XL (24 hour extended release) 150 MG PO (08:13)
[2024-06-05] MEDS: PROSCAR 5 MG PO (08:13)
[2024-06-05] MEDS: VITAMIN D3 (cholecalciferol) 50 MCG PO (08:13)
[2024-06-05] MEDS: MUCINEX 1200 MG PO ×2 (08:14→20:18)
[2024-06-05] MEDS: OCEAN, SALINE MIST NASAL ×5 (08:15→21:47)
--- NOTE | 2024-06-05 08:56 | W.PN.PUL3 ---
Today's Communication / Plan
-
Antibiotics for total of 7 days assuming he continues to clinically improve and remains afebrile for 48 hours prior to stopping
DuoNebs; start budesonide
Nasal spray
Aspiration precautions
Wean down supplemental O2 to keep SpO2 >90-94%
Outpatient PFTs
Radiographic surveillance as an outpatient to assure pneumonia resolves
Pulmonary service will continue to follow along
Assessment
-
Impression:
Acute hypoxemic respiratory failure requiring Midflow 12L and partial NRB mask --> now down to 7L/min midflow
Severe bilateral pneumonia
Abnormal CT chest: Reviewed, moderate bilateral pneumonia right greater than left, no significant pleural effusion. Moderate mediastinal and right hilar lymphadenopathy reactive versus malignant. Central bronchial narrowing secondary to extrinsic
compression by hilar lymphadenopathy.
Leukocytosis
Conditions present prior admission.
Hypercholesterolemia
Hypertension
History of prostate cancer
BPH
Overactive bladder
Urinary incontinence
Normal pressure hydrocephalus
Depression
History of bilateral hip replacement
Smoked pipe 30 years ago but quit many years ago
Assessment and plan:
Respiratory status is improving
Patient was on mid flow [id number] pulse ox at rest 94%, mild distress with conversation-maintain FiO2 to keep pulse ox above 90% --> now on 7L/min midflow and improved SOB
CT of the chest showed extensive bilateral pneumonia with mediastinal hilar lymphadenopathy.
Clinical picture suggest bacterial pneumonia
Check procal for trending power
-
Agree with broad-spectrum antibiotics vancomycin/cefepime/zithromax s/p zosyn
Influenza + RSV negative
COVID-negative
Negative Legionella and pneumococcal urine antigens
Sputum culture collected 06/04/2024 shows NGTD
Blood culture collected 06/04/2024 shows NGTD
-
Secretion clearance interventions with nebulizer
Acapella device if possible
Mucinex
Continue DuoNebs QID + add budesonide
-
Patient will need pulmonary follow-up to evaluate mediastinal lymphadenopathy is once pneumonia is treated.
Will need short-term repeat CT chest
Information will be left in chart
-
Cardiac etiology not highly suspected. Echocardiogram has been ordered.
EKG reviewed, normal sinus rhythm. LVH cannot rule out anterior infarct.
proBNP in the 200's
Troponin peaked at 0.035 on 06/04/2024 � no longer need to continue trending at this time
-
Patient also has reported dyspnea for many months. Will need to be addressed in the future.
-
Will follow
Total time spent today was 38 minutes for this encounter. Time includes reviewing laboratory test/imaging results, reviewing pertinent medical records, obtaining and reviewing medical history, performing an appropriate exam, ordering medications,
tests and procedures. Time also includes documentation of this encounter, coordinating patient care and communicating with other healthcare professionals. Total time does not include separately billed tests performed on this date of service.
Subjective Data
-
Date of Service:
Date of Service: June 05, 2024
Chief Complaint: Pulmonary Follow Up
Subjective:
Patient seen and evaluated today at bedside. Still coughing up yellow/green phlegm. Bringing up his phlegm without issue. Also endorses shortness of breath and chest discomfort, that he says is from the coughing. Currently, heart rate 82,
saturating 95% on 7 L/min midflow and BP 130/67. He denies VELOZ, abdominal pain, nausea, fevers or chills.
Review of Systems
General: Other (Negative unless mentioned above)
Objective Data
Data Reviewed
Vital Signs / I&O / Oxygen:
Vital Signs
Temp Pulse Resp BP Pulse Ox
98.2 F 77 18 113/61 95
06/05/24 07:22 06/05/24 07:18 06/05/24 07:18 06/05/24 02:00 06/05/24 07:18
Intake and Output
0106/05/24 06/06/24
06:59 06:59 06:59
Intake Total 490 / 490
Output Total 425 / 425 400 / 400
Balance 65 / 65 -400 / -400
SaO2 95
Nasal Cannula flow liters per 12
minute
Physical Exam
General: Respiratory Distress (negative), Comfortable, Chills (negative) and Sweats (negative)
HEENT: Normocephalic and Anicteric
Cardiovascular: S1-S2 and Peripheral Edema (negative)
Respiratory: Wheeze (Bilaterally), Crackles (Bilaterally), Rhonchi (negative) and Non-Labored Respirations
GI: Soft, Distended (Abdominal obesity), Non Tender and Normal Bowel Sounds
Neurology: AO x 3 and Tremors (negative)
Skin: Warm, Dry, Cyanosis (negative) and Jaundice (negative)
Labs/Micro/Reports
Lab Data
06/05/24 06:03
06/05/24 06:03
Microbiology
06/04/24 23:56 Urine Legionella Urinary Antigen - Final
Negative for Legionella pneumophila Serogroup 1 antigen.
A negative result does not rule out the possiblity of
Legionella infection due to other serogroups or species of
Legionella. Clinical correlation is recommended.
06/04/24 23:56 Urine Streptococcus pneumoniae Antigen (M - Final
Negative for Streptococcus pneumoniae antigen.
A negative result does not exclude infection with
Streptococcus pneumoniae. Clinical correlation is
recommended.
06/04/24 14:09 Nose Nasal Screen MRSA (PCR) - Final
MRSA not detected - performed by PCR methodology.
06/04/24 10:02 Nasal Swab Respiratory Syncytial Virus Culture - Final
Negative for Respiratory Syncytial Virus.
A false negative result may be obtained with a specimen
collected early in the acute phase. If symptoms persist, a
new specimen should be tested.
06/04/24 09:42 Nasal Swab Influenza Types A & B (FRANNY) - Final
Negative for Influenza A & B, NAAT
Negative results must be combined with clinical observations
and patient history.
Nucleic Acid Amplification test (NAAT)performed on the
[employer] platform.
--- NOTE | 2024-06-05 12:15 | CM ---
Addendum entered by Josseline Garcia RN 06/05/24 12:32:
Plan watch for home O2 needs.
Plan follow up after seen by PT/OT.
Original Note:
Patient from [facility]. O2 10L midflow. Receiving IV Abx. Per nurse assessment; forgetful.
Spoke with Nydia Keith, [facility] (cell [phone]); the patient resides alone at [facility].
He is mostly independent in ADLs and ambulation, mostly using his SPC and sometimes using his RW.
DME - RW, SPC, he has no home O2 or CPAP.
No prior VN or SNF.
PCP - Theo Adhikari
Pharmacy - [facility]
If plan is for patient to return directly to [facility], call Nydia Cardona, otherwise the ph for nurse report is [phone], fax [phone].
Nydia is asking for patient to be seen by PT/OT while here to determine disposition.
Message to Dr Lazaro requesting PT/OT Evals when medically appropriate.
Plan follow up after seen by PT/OT.
--- NOTE | 2024-06-05 13:54 | W.PN.HOSP.TC ---
Today's Communication/Plan
-
Continue oxygen support, wean as tolerated
Continue antibiotics
Assessment / Plan
Assessment / Plan
Physical Exam
General: Not in acute distress
HEENT: Normocephalic and Moist mucous membranes
Respiratory: Rhonchi (Right>Left)
Cardiac: S1/S2, Regular Rhythm and Regular Rate
GI: Soft, Non Tender and Normal Bowel Sounds
Musculoskeletal: No Cyanosis and No Edema
Skin: Warm and Dry
Neuro: Awake, Alert and AO x 3
Psych: Calm and Intact Judgment/Insight
Assessment/Plan
Acute Hypoxic Respiratory Failure
Concern for Pneumonia
Fever
-Required high flow oxygen in the ED --> now down to 6 L midflow nasal cannula
-CT PE study showed no PE, but did show bronchial narrowing, lymphadenopathy, and moderate bilateral pneumonia
-Vancomycin stopped as MRSA negative
-Continue Cefepime and Azithromycin
-Sputum culture pending
-Aspiration Precautions
-Mucinex
-Duoneb QID+prn nebulized bronchodilators will consider inhaled hypertonic saline
-Continue monitoring in IMU
-Given CT findings (including lymphadenopathy compressing airways, and the need for high-flow oxygen on admission), consulted pulmonary
Dyspnea on Exertion for Months
-As reported by patient's brother Michael
-proBNP was quite low
-Will likely need stress test and PFTs/pulmonary evaluation outpatient
History of Influenza A infection
Essential hypertension
-Blood pressure was in the 90s to low 100s systolic, now improved to normal range
-Hold off on home Losartan for now
Hypercholesterolemia
-Continue home Atorvastatin
Depression
-Continue Bupropion and Sertraline
BPH
History of Prostate Cancer
-Continue Rapaflo and Finasteride
Normal pressure hydrocephalus (was being followed by Dr. Ashley Reno outpatient)
-HIGH PRESSURE CLEANER shunt in place (present on chest x-ray)
Overactive bladder
History of urinary incontinence
Depression
Code status: Full Code (I confirmed this with patient's brother Michael in the presence of the patient)
DVT prophylaxis: Lovenox
Acute Hypoxic Respiratory Failure needing high-flow oxygen is a high-risk encounter.
Anticipated Discharge: > 48 hours
Subjective/Interval History
-
Date of Service: June 05, 2024
Patient was seen and examined. He was doing better today, shortness of breath is better, no chest pain.
Objective Data
-
Labs:
Laboratory Results
06/05/24
06:03
WBC 15.1 H
Hgb 12.2 L
Hct 37.3 L
Plt Count 130
Sodium 136
Potassium 3.9
Chloride 103
Carbon Dioxide 23
BUN 15
Creatinine 0.7
Glucose 110 H
Calcium 8.1 L
Vital Signs:
Vital Signs
Temp Pulse Resp BP Pulse Ox
98.6 F 90 23 150/130 85
06/05/24 11:49 06/05/24 13:00 06/05/24 13:00 06/05/24 10:19 06/05/24 13:00
I&O
06/04/24 06/05/24 06/06/24
06:59 06:59 06:59
Intake Total 490 / 490
Output Total 425 / 425 575 / 575
Balance 65 / 65 -575 / -575
--- NOTE | 2024-06-05 14:55 | PTCARENOTE ---
Patient AAOx3. VSS. NSR. Weaned to 7L midflow, sats 94%. C/o STEWART. Productive cough. Patient had 4 incontinent liquid BMs this morning. Cdiff sent and resulted negative. Patient making needs known. Will continue to monitor.
[2024-06-05] MEDS: LOVENOX 40 MG SC (19:19)
[2024-06-05] MEDS: ZITHROMAX INFUSION 250 IV (19:20)
[2024-06-05 19:21] LABS: Hepatitis C Antibody Negative (Negative)
[2024-06-05] MEDS: PULMICORT 0.5 MG INH (19:45)
[2024-06-06] VITALS (15 sets, daily range): BP systolic 98–147; BP diastolic 49–118; PULSE 86; O2SAT 94–96
--- NOTE | 2024-06-06 03:33 | PTCARENOTE ---
Patient is Aox3 but can be forgetful. NSR on monitor. 7L midflow with productive cough. Patient is making needs known. Assessment and VS as documented. Call hernandez in reach.
[2024-06-06 05:05] LABS: % Basophils 0.3 % (0-2); % Eosinophils 1.6 % (0-6); % Immature Granulocytes 0.6 % (0-0.5); % Lymphocytes 11.6 % (20.5-51.1); % Monocytes 6.4 % (1.7-9.3); % Neutrophils 79.5 % (42.2-75.2); Absolute Eosinophils 0.2 10^3/uL (0-0.7); Absolute Immature Granulocytes 0.1 10^3/uL (0-0.05); Absolute Lymphocytes 1.4 10^3/uL (1.2-3.4); Absolute Monocytes 0.8 10^3/uL (0.1-0.6); Absolute Neutrophils 9.5 10^3/uL (1.4-6.5); Hematocrit 38.3 % (39.0-52.0); Hemoglobin 12.6 g/dL (13.0-18.0); Mean Corp Hgb Conc. 32.9 g/dL (33.0-37.0); Mean Corpuscular Hgb 28.5 pg (27.0-31.0); Mean Corpuscular Volume 86.7 fL (80.0-94.0); Mean Platelet Volume 9.5 fL (7.4-10.4); Nucleated Red Blood Cells % 0 % (-); Platelet Count 139 10^3/uL (130-400); Red Blood Cell Count 4.42 10^6/uL (4.70-6.10); Red Cell Dist. Width 13.3 % (11.5-14.5)
[2024-06-06 05:10] LABS: Blood Urea Nitrogen 13 mg/dl (9-20); Calcium 8.2 mg/dl (8.4-10.2); Carbon Dioxide 24 mmol/L (22-30); Chloride 105 mmol/L (98-107); Estimated Creatinine Clearance 87 ml/min; Glucose 108 mg/dl (70-99); Potassium 3.8 mmol/L (3.5-5.1); Sodium 136 mmol/L (135-145); eGFR > 60.00
[2024-06-06 05:25] LABS: Procalcitonin 1.87 ng/ml (0.0-0.25)
[2024-06-06] MEDS: STERILE WATER FOR INJECTION 10 ML IV ×3 (06:11→22:03)
[2024-06-06] MEDS: MAXIPIME 2000 MG IV ×3 (06:11→22:03)
[2024-06-06] MEDS: PULMICORT 0.5 MG INH ×2 (06:27→20:05)
[2024-06-06] MEDS: DUONEB 3 ML INH ×4 (06:27→20:05)
[2024-06-06] MEDS: WELLBUTRIN XL (24 hour extended release) 150 MG PO (08:04)
[2024-06-06] MEDS: PROSCAR 5 MG PO (08:04)
[2024-06-06] MEDS: FEOSOL 325 MG PO (08:04)
[2024-06-06] MEDS: MUCINEX 1200 MG PO ×2 (08:04→22:03)
[2024-06-06] MEDS: VITAMIN B-12 2000 MCG PO (08:04)
[2024-06-06] MEDS: FLOMAX 0.4 MG PO (08:04)
[2024-06-06] MEDS: VITAMIN D3 (cholecalciferol) 50 MCG PO (08:04)
[2024-06-06] MEDS: OCEAN, SALINE MIST 1 SPRAYS NASAL (08:05)
[2024-06-06] MEDS: ZOLOFT 50 MG PO (08:05)
[2024-06-06] MEDS: METAMUCIL, KONSYL PO ×3 (08:05→22:02)
--- NOTE | 2024-06-06 08:50 | W.PN.PUL3 ---
Today's Communication / Plan
-
Antibiotics for total of 7 days assuming he continues to clinically improve and remains afebrile for 48 hours prior to stopping
DuoNebs + budesonide
Nasal spray
Aspiration precautions
Wean down supplemental O2 to keep SpO2 >90-94%
Outpatient PFTs
Radiographic surveillance as an outpatient to assure pneumonia resolves
Pulmonary service will continue to follow along
Assessment
-
Impression:
Acute hypoxemic respiratory failure requiring Midflow 12L and partial NRB mask --> now down to 4L/min nasal cannula s/p 7L/min midflow
Severe bilateral pneumonia
Abnormal CT chest: Reviewed, moderate bilateral pneumonia right greater than left, no significant pleural effusion. Moderate mediastinal and right hilar lymphadenopathy reactive versus malignant. Central bronchial narrowing secondary to extrinsic
compression by hilar lymphadenopathy.
Leukocytosis
Conditions present prior admission.
Hypercholesterolemia
Hypertension
History of prostate cancer
BPH
Overactive bladder
Urinary incontinence
Normal pressure hydrocephalus
Depression
History of bilateral hip replacement
Smoked pipe 30 years ago but quit many years ago
Assessment and plan:
Respiratory status continuing to improve
Patient was on mid flow [id number] pulse ox at rest 94%, mild distress with conversation-maintain FiO2 to keep pulse ox above 90% --> now on 4L/min nasal cannula and has improved SOB
CT of the chest showed extensive bilateral pneumonia with mediastinal hilar lymphadenopathy.
Clinical picture suggest bacterial pneumonia
Check procal for trending power (1.87 on 06/06/2024) --> recheck again in 48 hrs to assure we have source control
-
Agree with broad-spectrum antibiotics cefepime/zithromax s/p zosyn; vancomycin DC'd as MRSA swab negative
Influenza + RSV negative
COVID-negative
Negative Legionella and pneumococcal urine antigens
Sputum culture collected 06/04/2024 shows NGTD
Blood culture collected 06/04/2024 shows NGTD
-
Secretion clearance interventions with nebulizer
Acapella device if possible
Mucinex
Continue DuoNebs QID + budesonide
-
Patient will need pulmonary follow-up to evaluate mediastinal lymphadenopathy is once pneumonia is treated.
Will need short-term repeat CT chest
Information will be left in chart
-
Cardiac etiology not highly suspected. Echocardiogram has been ordered.
EKG reviewed, normal sinus rhythm. LVH cannot rule out anterior infarct.
proBNP in the 200's
Troponin peaked at 0.035 on 06/04/2024 � no longer need to continue trending at this time
-
Patient also has reported dyspnea for many months. Will need to be addressed in the future.
-
Will follow
Total time spent today was 36 minutes for this encounter. Time includes reviewing laboratory test/imaging results, reviewing pertinent medical records, obtaining and reviewing medical history, performing an appropriate exam, ordering medications,
tests and procedures. Time also includes documentation of this encounter, coordinating patient care and communicating with other healthcare professionals. Total time does not include separately billed tests performed on this date of service.
Subjective Data
-
Date of Service:
Date of Service: June 06, 2024
Chief Complaint: Pulmonary Follow Up
Subjective:
Patient seen and evaluated today at bedside. Shortness of breath improved. Had a productive cough this morning with yellow phlegm but now cough is dry. Currently, heart rate 82, saturating 93% on 4 L/min and BP 100/81. He denies chest pain, VELOZ,
abdominal pain, nausea, fevers or chills.
Review of Systems
General: Other (Negative unless mentioned above)
Objective Data
Data Reviewed
Vital Signs / I&O / Oxygen:
Vital Signs
Temp Pulse Resp BP Pulse Ox
98.2 F 82 29 117/73 95
06/06/24 03:07 06/06/24 09:00 06/06/24 09:00 06/06/24 08:00 06/06/24 09:02
Intake and Output
06/05/24 06/06/24 06/07/24
06:59 06:59 06:59
Intake Total 490 / 490
Output Total 425 / 425 1250 / 1250
Balance 65 / 65 -1250 / -1250
SaO2 95
Nasal Cannula flow liters per 7
minute
Physical Exam
General: Respiratory Distress (negative), Comfortable, Chills (negative) and Sweats (negative)
HEENT: Normocephalic and Anicteric
Cardiovascular: S1-S2 and Peripheral Edema (negative)
Respiratory: Wheeze (Bilaterally), Crackles (Bilaterally), Rhonchi (negative) and Non-Labored Respirations
GI: Soft, Distended (Abdominal obesity), Non Tender and Normal Bowel Sounds
Neurology: AO x 3 and Tremors (negative)
Skin: Warm, Dry, Cyanosis (negative) and Jaundice (negative)
Labs/Micro/Reports
Lab Data
06/06/24 04:36
06/06/24 04:36
Microbiology
06/05/24 10:43 Feces/Stool C. difficile GDH Antigen & Toxins - Final
Negative for toxigenic C.difficile
06/04/24 22:13 Sputum Gram Stain - Preliminary
06/04/24 10:03 Blood/Venous Blood Culture - Preliminary
No Growth in 24 hours- Final report to follow
06/04/24 10:03 Blood/Venous Blood Culture - Preliminary
No Growth in 24 hours- Final report to follow
06/04/24 23:56 Urine Legionella Urinary Antigen - Final
Negative for Legionella pneumophila Serogroup 1 antigen.
A negative result does not rule out the possiblity of
Legionella infection due to other serogroups or species of
Legionella. Clinical correlation is recommended.
06/04/24 23:56 Urine Streptococcus pneumoniae Antigen (M - Final
Negative for Streptococcus pneumoniae antigen.
A negative result does not exclude infection with
Streptococcus pneumoniae. Clinical correlation is
recommended.
06/04/24 14:09 Nose Nasal Screen MRSA (PCR) - Final
MRSA not detected - performed by PCR methodology.
06/04/24 10:02 Nasal Swab Respiratory Syncytial Virus Culture - Final
Negative for Respiratory Syncytial Virus.
A false negative result may be obtained with a specimen
collected early in the acute phase. If symptoms persist, a
new specimen should be tested.
06/04/24 09:42 Nasal Swab Influenza Types A & B (FRANNY) - Final
Negative for Influenza A & B, NAAT
Negative results must be combined with clinical observations
and patient history.
Nucleic Acid Amplification test (NAAT)performed on the
[employer] platform.
--- NOTE | 2024-06-06 11:29 | PN.CDI ---
CDI
- -
CDI:
Physician Documentation Request
Admit Date: 06/04/24 13:06
Dear Doctor Tejas,
Please review the following and provide your response in the progress notes.
Clinical Indicators:
- On admission: WBC 19.1, Tmax 103.3, HR 100s, RR 20-30s
- 1/2 PN 'Concern for Pneumonia'
- 1/2 Pulmonary 'Severe bilateral pneumonia'
- IV bax Azithromycin, Cefepime, Zosyn, Vancomycin
- 500ml IVF given
Please clarify which of the following most accurately describes the status of the patient's infection:
Sepsis due to pneumonia
Severe Sepsis due to pneumonia with associated acute hypoxic respiratory failure
Localized Infection Only, Without Systemic Illness, pneumonia
Other
Use of terms such as suspected, likely, concern for, or probable (associated with a specific diagnosis that is being evaluated, monitored, or treated as if it exists) are acceptable and can be coded in the inpatient setting, when documented at the
time of discharge.
Thank you,
Katie Meraz RN
CDI Specialist
Please use your independent medical judgment in providing your response.
[2024-06-06] MEDS: OCEAN, SALINE MIST NASAL ×3 (15:52→22:04)
[2024-06-06] MEDS: ZITHROMAX INFUSION 250 IV (18:01)
[2024-06-06] MEDS: LOVENOX 40 MG SC (18:01)
--- NOTE | 2024-06-06 20:33 | W.PN.HOSP.TC ---
Today's Communication/Plan
-
Oxygen requirements gradually improving
Continue antibiotics, pulmonary toilet, bronchodilators and ICS
Assessment / Plan
Assessment / Plan
Physical Exam
General: Not in acute distress
HEENT: Normocephalic and Moist mucous membranes
Respiratory: Rhonchi (Right>Left)
Cardiac: S1/S2, Regular Rhythm and Regular Rate
GI: Soft, Non Tender and Normal Bowel Sounds
Musculoskeletal: No Cyanosis and No Edema
Skin: Warm and Dry
Neuro: Awake, Alert and AO x 3
Psych: Calm and Intact Judgment/Insight
Assessment/Plan
Acute Hypoxic Respiratory Failure
Concern for Pneumonia
Fever
-Required high flow oxygen in the ED --> now down to 4 L midflow nasal cannula
-CT PE study showed no PE, but did show bronchial narrowing, lymphadenopathy, and moderate bilateral pneumonia
-Vancomycin stopped as MRSA negative
-Continue Cefepime and Azithromycin --> continue antibiotics for 7 days
-Sputum culture pending
-Aspiration Precautions
-Mucinex
-Duoneb QID+prn nebulized bronchodilators will consider inhaled hypertonic saline
-Budesonide
-Continue monitoring in IMU
-Given CT findings (including lymphadenopathy compressing airways, and the need for high-flow oxygen on admission), consulted pulmonary
Dyspnea on Exertion for Months
-As reported by patient's brother Michael
-proBNP was quite low
-Will likely need stress test and PFTs/pulmonary evaluation outpatient
History of Influenza A infection
Essential hypertension
-Blood pressure was in the 90s to low 100s systolic, now improved to normal range
-Hold off on home Losartan for now
Hypercholesterolemia
-Continue home Atorvastatin
Depression
-Continue Bupropion and Sertraline
BPH
History of Prostate Cancer
-Continue Rapaflo and Finasteride
Normal pressure hydrocephalus (was being followed by Dr. Ashley Reno outpatient)
-CARDIAC NURSE PRACTITIONER shunt in place (present on chest x-ray)
Overactive bladder
History of urinary incontinence
Depression
Code status: Full Code (I confirmed this with patient's brother Michael in the presence of the patient)
DVT prophylaxis: Lovenox
Acute Hypoxic Respiratory Failure needing mid-flow oxygen is a high-risk encounter.
Anticipated Discharge: > 48 hours
Subjective/Interval History
-
Date of Service: June 06, 2024
Patient was seen and examined. He reported feeling better.
Objective Data
-
Vital Signs:
Vital Signs
Temp Pulse Resp BP Pulse Ox
98 F 77 15 98/76 94
06/06/24 15:10 06/06/24 20:07 06/06/24 20:07 06/06/24 16:05 06/06/24 20:07
I&O
06/05/24 06/06/24 06/07/24
06:59 06:59 06:59
Intake Total 490 / 490
Output Total 425 / 425 1250 / 1250
Balance 65 / 65 -1250 / -1250
[2024-06-06] MEDS: LIPITOR 40 MG PO (22:03)
[2024-06-06] MEDS: VENTOLIN NEBULES 1.25 MG INH (23:12)
[2024-06-07] VITALS (13 sets, daily range): BP systolic 101–146; BP diastolic 64–106; PULSE 81; O2SAT 93
[2024-06-07 05:08] LABS: % Basophils 0.3 % (0-2); % Eosinophils 1.4 % (0-6); % Monocytes 7.2 % (1.7-9.3); % Neutrophils 81.1 % (42.2-75.2); Absolute Eosinophils 0.2 10^3/uL (0-0.7); Absolute Immature Granulocytes 0.1 10^3/uL (0-0.05); Absolute Lymphocytes 1.1 10^3/uL (1.2-3.4); Absolute Monocytes 0.8 10^3/uL (0.1-0.6); Absolute Neutrophils 9.4 10^3/uL (1.4-6.5); Hematocrit 36.3 % (39.0-52.0); Hemoglobin 12.1 g/dL (13.0-18.0); Mean Corp Hgb Conc. 33.3 g/dL (33.0-37.0); Mean Platelet Volume 9.8 fL (7.4-10.4); Nucleated Red Blood Cells % 0 % (-); Platelet Count 168 10^3/uL (130-400); Red Blood Cell Count 4.32 10^6/uL (4.70-6.10); Red Cell Dist. Width 13.2 % (11.5-14.5); White Blood Cell Count 11.6 10^3/uL (4.8-10.8)
[2024-06-07 05:15] LABS: Blood Urea Nitrogen 10 mg/dl (9-20); Calcium 8.3 mg/dl (8.4-10.2); Carbon Dioxide 25 mmol/L (22-30); Chloride 102 mmol/L (98-107); Estimated Creatinine Clearance 101 ml/min; Glucose 115 mg/dl (70-99); Potassium 3.4 mmol/L (3.5-5.1); Sodium 137 mmol/L (135-145); eGFR > 60.00
[2024-06-07] MEDS: KCL 20 MEQ PO (05:43)
[2024-06-07] MEDS: MAXIPIME 2000 MG IV ×3 (05:43→22:34)
[2024-06-07] MEDS: STERILE WATER FOR INJECTION 10 ML IV ×3 (05:43→22:35)
--- NOTE | 2024-06-07 06:09 | PTCARENOTE ---
Pt morning K 3.4. Cristel, [employer] notified. PO KCl Rx'd and administered (see MAR). Pt aaox3. NSR on monitor. Pt sat 97% on 4L NC. Pt resting in bed with call hernandez in reach.
[2024-06-07] MEDS: DUONEB 3 ML INH ×4 (07:47→19:42)
[2024-06-07] MEDS: PULMICORT 0.5 MG INH ×2 (07:48→19:42)
[2024-06-07] MEDS: MUCINEX 1200 MG PO ×2 (08:01→20:19)
[2024-06-07] MEDS: METAMUCIL, KONSYL 1 PACKET PO (08:01)
[2024-06-07] MEDS: FEOSOL 325 MG PO (08:01)
[2024-06-07] MEDS: ZOLOFT 50 MG PO (08:01)
[2024-06-07] MEDS: PROSCAR 5 MG PO (08:02)
[2024-06-07] MEDS: VITAMIN B-12 2000 MCG PO (08:02)
[2024-06-07] MEDS: FLOMAX 0.4 MG PO (08:02)
[2024-06-07] MEDS: VITAMIN D3 (cholecalciferol) 50 MCG PO (08:02)
[2024-06-07] MEDS: WELLBUTRIN XL (24 hour extended release) 150 MG PO (08:05)
[2024-06-07] MEDS: OCEAN, SALINE MIST NASAL ×4 (08:05→20:19)
--- NOTE | 2024-06-07 14:20 | W.PN.PUL3 ---
Today's Communication / Plan
-
Continue antibiotics for now-transition to oral antibiotics tomorrow if he continues to improve
Home oxygen assessment tomorrow-maintain pulse ox above 90%
Incentive spirometer
Secretion clearance interventions
Recheck procalcitonin tomorrow
Will follow
Hopefully can be discharged in the next 24 hours, likely will require some supplemental oxygen temporarily.
Outpatient pulmonary follow-up
Assessment
-
Impression:
Acute hypoxemic respiratory failure requiring Midflow 12L and partial NRB mask --> now down to 4L/min nasal cannula s/p 7L/min midflow
Severe bilateral pneumonia
Abnormal CT chest: Reviewed, moderate bilateral pneumonia right greater than left, no significant pleural effusion. Moderate mediastinal and right hilar lymphadenopathy reactive versus malignant. Central bronchial narrowing secondary to extrinsic
compression by hilar lymphadenopathy.
Leukocytosis
Conditions present prior admission.
Hypercholesterolemia
Hypertension
History of prostate cancer
BPH
Overactive bladder
Urinary incontinence
Normal pressure hydrocephalus
Depression
History of bilateral hip replacement
Smoked pipe 30 years ago but quit many years ago
Assessment and plan:
Patient is gradually improving-on residual oxygen supplementation
Continue to wean down as able. Currently on room air and pulse ox is 90% at rest, down from 12 L. Likely has mild desaturation with activity
Check home assessment tomorrow.
Clinically feels better.
Afebrile
Leukocytosis improved
CT of the chest showed extensive bilateral pneumonia with mediastinal hilar lymphadenopathy.
Clinical picture suggest bacterial pneumonia
Check procal for trending power (1.87 on 06/06/2024) --> recheck again tomorrow 06/08/2024
-
Continue broad-spectrum antibiotics cefepime/zithromax s/p zosyn; vancomycin DC'd as MRSA swab negative likely will require 7 days of antibiotics. If continues to improve consider transition to oral antibiotics in the next 24 hours per
Influenza + RSV negative
COVID-negative
Negative Legionella and pneumococcal urine antigens
Sputum culture collected 06/04/2024 shows NGTD
Blood culture collected 06/04/2024 shows NGTD
-
Secretion clearance interventions with nebulizer
Acapella device if possible
Mucinex
Continue DuoNebs QID + budesonide
-
Patient will need pulmonary follow-up to evaluate mediastinal lymphadenopathy is once pneumonia is treated.
Will need short-term repeat CT chest
Information will be left in chart
-
Cardiac etiology not highly suspected. Echocardiogram has been ordered.
EKG reviewed, normal sinus rhythm. LVH cannot rule out anterior infarct.
proBNP in the 200's
Troponin peaked at 0.035 on 06/04/2024 � no longer need to continue trending at this time
-
Patient also has reported dyspnea for many months. Will need to be addressed in the future.
-
Will follow
Total time spent today was 37 minutes for this encounter. Time includes reviewing laboratory test/imaging results, reviewing pertinent medical records, obtaining and reviewing medical history, performing an appropriate exam, ordering medications,
tests and procedures. Time also includes documentation of this encounter, coordinating patient care and communicating with other healthcare professionals. Total time does not include separately billed tests performed on this date of service.
Subjective Data
-
Date of Service:
Date of Service: June 07, 2024
Chief Complaint: Pulmonary Follow Up
Subjective:
No new complaints
Denies hemoptysis
Denies purulent sputum production
Denies chills or fever
Review of Systems
Cardiopulmonary: Dyspnea (Improved)
Objective Data
Data Reviewed
Vital Signs / I&O / Oxygen:
Vital Signs
Temp Pulse Resp BP Pulse Ox
98.7 F 92 23 143/99 93
06/07/24 07:05 06/07/24 12:05 06/07/24 12:05 06/07/24 08:32 06/07/24 12:05
Intake and Output
06/06/24 06/07/24 06/08/24
06:59 06:59 06:59
Output Total 1250 / 1250 450 / 450
Balance -1250 / -1250 -450 / -450
SaO2 93
Nasal Cannula flow liters per 4
minute
Physical Exam
General: Respiratory Distress (negative), Comfortable, Chills (negative) and Sweats (negative)
HEENT: Normocephalic and Anicteric
Cardiovascular: S1-S2 and Peripheral Edema (negative)
Respiratory: Wheeze (Bilaterally), Crackles (Bilaterally), Rhonchi (negative) and Non-Labored Respirations
GI: Soft, Distended (Abdominal obesity), Non Tender and Normal Bowel Sounds
Neurology: AO x 3 and Tremors (negative)
Skin: Warm, Dry, Cyanosis (negative) and Jaundice (negative)
Labs/Micro/Reports
Lab Data
06/07/24 03:48
06/07/24 03:48
Microbiology
06/04/24 10:03 Blood/Venous Blood Culture - Preliminary
No Growth in 72 hours- Final report to follow
06/04/24 10:03 Blood/Venous Blood Culture - Preliminary
No Growth in 72 hours- Final report to follow
06/04/24 22:13 Sputum Respiratory Culture - Final
Usual Respiratory Rosey
06/04/24 22:13 Sputum Gram Stain - Final
06/05/24 10:43 Feces/Stool C. difficile GDH Antigen & Toxins - Final
Negative for toxigenic C.difficile
06/04/24 23:56 Urine Legionella Urinary Antigen - Final
Negative for Legionella pneumophila Serogroup 1 antigen.
A negative result does not rule out the possiblity of
Legionella infection due to other serogroups or species of
Legionella. Clinical correlation is recommended.
06/04/24 23:56 Urine Streptococcus pneumoniae Antigen (M - Final
Negative for Streptococcus pneumoniae antigen.
A negative result does not exclude infection with
Streptococcus pneumoniae. Clinical correlation is
recommended.
06/04/24 14:09 Nose Nasal Screen MRSA (PCR) - Final
MRSA not detected - performed by PCR methodology.
06/04/24 10:02 Nasal Swab Respiratory Syncytial Virus Culture - Final
Negative for Respiratory Syncytial Virus.
A false negative result may be obtained with a specimen
collected early in the acute phase. If symptoms persist, a
new specimen should be tested.
06/04/24 09:42 Nasal Swab Influenza Types A & B (FRANNY) - Final
Negative for Influenza A & B, NAAT
Negative results must be combined with clinical observations
and patient history.
Nucleic Acid Amplification test (NAAT)performed on the
[employer] platform.
--- NOTE | 2024-06-07 18:11 | W.PN.HOSP.TC ---
Today's Communication/Plan
-
Continue antibiotics
Improving
Home oxygen assessment in the AM
Assessment / Plan
Assessment / Plan
Physical Exam
General: Not in acute distress
HEENT: Normocephalic and Moist mucous membranes
Respiratory: Rhonchi (Right>Left)
Cardiac: S1/S2, Regular Rhythm and Regular Rate
GI: Soft, Non Tender and Normal Bowel Sounds
Musculoskeletal: No Cyanosis and No Edema
Skin: Warm and Dry
Neuro: Awake, Alert and AO x 3
Psych: Calm and Intact Judgment/Insight
Assessment/Plan
Acute Hypoxic Respiratory Failure
Concern for Pneumonia
Fever
-Required high flow oxygen in the ED --> now down to 3 L midflow nasal cannula
-CT PE study showed no PE, but did show bronchial narrowing, lymphadenopathy, and moderate bilateral pneumonia
-Vancomycin stopped as MRSA negative
-Continue Cefepime and Azithromycin --> continue antibiotics for 7 days
-Sputum culture pending
-Aspiration Precautions
-Mucinex
-Duoneb QID+prn nebulized bronchodilators will consider inhaled hypertonic saline
-Budesonide
-Given CT findings (including lymphadenopathy compressing airways, and the need for high-flow oxygen on admission), consulted pulmonary
Dyspnea on Exertion for Months
-As reported by patient's brother Michael
-proBNP was quite low
-Will likely need stress test and PFTs/pulmonary evaluation outpatient
History of Influenza A infection
Essential hypertension
-Blood pressure was in the 90s to low 100s systolic, now improved to normal range
-Hold off on home Losartan for now
Hypercholesterolemia
-Continue home Atorvastatin
Depression
-Continue Bupropion and Sertraline
BPH
History of Prostate Cancer
-Continue Rapaflo and Finasteride
Normal pressure hydrocephalus (was being followed by Dr. Ashley Reno outpatient)
-BLUEPRINT DUPLICATOR shunt in place (present on chest x-ray)
Overactive bladder
History of urinary incontinence
Depression
Code status: Full Code (I confirmed this with patient's brother Michael in the presence of the patient)
DVT prophylaxis: Lovenox
Anticipated Discharge: Within 24 hours
Subjective/Interval History
-
Date of Service: June 07, 2024
Patient was seen and examined. He denied any chest pain or shortness of breath.
Objective Data
-
Vital Signs:
Vital Signs
Temp Pulse Resp BP Pulse Ox
98.4 F 79 21 101/85 91
06/07/24 15:05 06/07/24 16:00 06/07/24 16:00 06/07/24 15:10 06/07/24 16:00
I&O
06/06/24 06/07/24 06/08/24
06:59 06:59 06:59
Intake Total 480 / 480
Output Total 1250 / 1250 450 / 450 400 / 400
Balance -1250 / -1250 -450 / -450 80 / 80
[2024-06-07] MEDS: ZITHROMAX INFUSION 250 IV (18:12)
[2024-06-07] MEDS: LOVENOX 40 MG SC (18:12)
--- NOTE | 2024-06-07 19:09 | PTCARENOTE ---
day shift note. see nursing worklist. pt currently down to 2 liters o2. attempted to place on room air however sat occasionally dropping down to 88 on room air so 2 liters replaced with sats in 90s. sinus rythym on monitor. pt oob in chair most of
day and ambulated with PT. occasional hrsh cough with pt expectorating yellow sputum.
[2024-06-07] MEDS: METAMUCIL, KONSYL PO (20:19)
--- NOTE | 2024-06-07 23:00 | PTCARENOTE ---
Received pt from day shift RN. Pt aaox3, but forgetful. NSR on monitor. 96% on 3L NC. assessment completed and medications administered. Pt resting in bed with bed alarm on and call hernandez in reach.
[2024-06-08] VITALS (11 sets, daily range): BP systolic 106–138; BP diastolic 70–95; PULSE 79; O2SAT 94
[2024-06-08 04:06] LABS: % Basophils 0.4 % (0-2); % Eosinophils 1.4 % (0-6); % Immature Granulocytes 1.9 % (0-0.5); % Lymphocytes 10.3 % (20.5-51.1); % Monocytes 7.2 % (1.7-9.3); % Neutrophils 78.8 % (42.2-75.2); Absolute Basophils 0.1 10^3/uL (0-0.2); Absolute Eosinophils 0.2 10^3/uL (0-0.7); Absolute Immature Granulocytes 0.2 10^3/uL (0-0.05); Absolute Lymphocytes 1.3 10^3/uL (1.2-3.4); Absolute Monocytes 0.9 10^3/uL (0.1-0.6); Absolute Neutrophils 9.8 10^3/uL (1.4-6.5); Hematocrit 36.5 % (39.0-52.0); Hemoglobin 12.6 g/dL (13.0-18.0); Mean Corp Hgb Conc. 34.5 g/dL (33.0-37.0); Mean Corpuscular Hgb 28.6 pg (27.0-31.0); Mean Corpuscular Volume 82.8 fL (80.0-94.0); Mean Platelet Volume 9.3 fL (7.4-10.4); Nucleated Red Blood Cells % 0 % (-); Platelet Count 180 10^3/uL (130-400); Red Blood Cell Count 4.41 10^6/uL (4.70-6.10); White Blood Cell Count 12.4 10^3/uL (4.8-10.8)
[2024-06-08 04:36] LABS: Blood Urea Nitrogen 10 mg/dl (9-20); Calcium 8.4 mg/dl (8.4-10.2); Carbon Dioxide 26 mmol/L (22-30); Chloride 103 mmol/L (98-107); Estimated Creatinine Clearance 101 ml/min; Glucose 118 mg/dl (70-99); Potassium 3.5 mmol/L (3.5-5.1); Sodium 139 mmol/L (135-145); eGFR > 60.00
[2024-06-08] MEDS: MAXIPIME 2000 MG IV ×2 (05:46→13:23)
[2024-06-08] MEDS: STERILE WATER FOR INJECTION 10 ML IV ×2 (05:46→13:24)
[2024-06-08] MEDS: ZOLOFT 50 MG PO (07:51)
[2024-06-08] MEDS: WELLBUTRIN XL (24 hour extended release) 150 MG PO (07:51)
[2024-06-08] MEDS: PROSCAR 5 MG PO (07:51)
[2024-06-08] MEDS: VITAMIN D3 (cholecalciferol) 50 MCG PO (07:51)
[2024-06-08] MEDS: MUCINEX 1200 MG PO ×2 (07:51→21:05)
[2024-06-08] MEDS: FLOMAX 0.4 MG PO (07:51)
[2024-06-08] MEDS: VITAMIN B-12 2000 MCG PO (07:51)
[2024-06-08] MEDS: FEOSOL 325 MG PO (07:51)
[2024-06-08] MEDS: METAMUCIL, KONSYL 1 PACKET PO ×2 (08:15→21:06)
[2024-06-08] MEDS: OCEAN, SALINE MIST 1 SPRAYS NASAL ×3 (08:16→17:15)
[2024-06-08] MEDS: PULMICORT 0.5 MG INH ×2 (08:27→20:26)
[2024-06-08] MEDS: DUONEB 3 ML INH ×4 (08:27→20:25)
--- NOTE | 2024-06-08 11:58 | W.PN.PUL3 ---
Today's Communication / Plan
-
Will need supplemental oxygen at discharge 2 L with ambulation
Complete 7 days of antibiotics, okay to transition to oral
Discharge planning from my perspective
Outpatient radiographic follow-up in the short-term with Dr. Aly next
Assessment
-
Impression:
Acute hypoxemic respiratory failure requiring Midflow 12L and partial NRB mask --> now down to 4L/min nasal cannula s/p 7L/min midflow
Severe bilateral pneumonia
Abnormal CT chest: Reviewed, moderate bilateral pneumonia right greater than left, no significant pleural effusion. Moderate mediastinal and right hilar lymphadenopathy reactive versus malignant. Central bronchial narrowing secondary to extrinsic
compression by hilar lymphadenopathy.
Leukocytosis
Conditions present prior admission.
Hypercholesterolemia
Hypertension
History of prostate cancer
BPH
Overactive bladder
Urinary incontinence
Normal pressure hydrocephalus
Depression
History of bilateral hip replacement
Smoked pipe 30 years ago but quit many years ago
Assessment and plan:
Clinically improved
Afebrile
Leukocytosis better
Not requiring oxygen supplementation at rest, decreased to 86 with ambulation with physical therapy. Likely will need 2 L of supplemental oxygen upon discharge temporarily.
-
CT of the chest showed extensive bilateral pneumonia with mediastinal hilar lymphadenopathy.
Clinical picture suggest bacterial pneumonia
Check procal for trending power (1.87 on 06/06/2024) --> recheck again tomorrow 06/08/2024
-
Continue broad-spectrum antibiotics cefepime/zithromax s/p zosyn; vancomycin DC'd as MRSA swab negative likely will require 7 days of antibiotics.
Okay to transition to oral anticoagulants: Complete total of 7 days of antibiotics, may use Levaquin. Will leave at your discretion.
Influenza + RSV negative
COVID-negative
Negative Legionella and pneumococcal urine antigens
Sputum culture collected 06/04/2024 shows NGTD
Blood culture collected 06/04/2024 shows NGTD
-
Secretion clearance interventions with nebulizer while in the hospital
Acapella device if possible-can use in the outpatient setting.
Mucinex
Continue DuoNebs QID + budesonide-while in the hospital.
Never required systemic corticosteroids.
-
Patient will need pulmonary follow-up to evaluate mediastinal lymphadenopathy is once pneumonia is treated.
Will need short-term repeat CT chest
Information will be left in chart
-
Cardiac etiology not highly suspected. Echocardiogram has been ordered.
EKG reviewed, normal sinus rhythm. LVH cannot rule out anterior infarct.
proBNP in the 200's
Troponin peaked at 0.035 on 06/04/2024 � no longer need to continue trending at this time
-
Patient also has reported dyspnea for many months. Will need to be addressed in the future.
-
At this point, no additional recommendation from the pulmonary perspective. Will need supplemental oxygen at discharge with ambulation.
Complete 7 days of antibiotics
Short-term pulmonary follow-up with Dr. Aly
Subjective Data
-
Date of Service:
Date of Service: June 08, 2024
Chief Complaint: Pulmonary Follow Up
Objective Data
Data Reviewed
Vital Signs / I&O / Oxygen:
Vital Signs
Temp Pulse Resp BP Pulse Ox
98.3 F 90 18 126/82 92
06/08/24 11:39 06/08/24 09:03 06/08/24 09:03 06/08/24 05:51 06/08/24 09:03
Intake and Output
06/07/24 06/08/24 06/09/24
06:59 06:59 06:59
Intake Total 480 / 480
Output Total 450 / 450 1175 / 1175 100 / 100
Balance -450 / -450 -695 / -695 -100 / -100
SaO2 92
Nasal Cannula flow liters per 3
minute
Physical Exam
General: Respiratory Distress (negative), Comfortable, Chills (negative) and Sweats (negative)
HEENT: Normocephalic and Anicteric
Cardiovascular: S1-S2 and Peripheral Edema (negative)
Respiratory: Wheeze (Bilaterally), Crackles (Bilaterally), Rhonchi (negative) and Non-Labored Respirations
GI: Soft, Distended (Abdominal obesity), Non Tender and Normal Bowel Sounds
Neurology: AO x 3 and Tremors (negative)
Skin: Warm, Dry, Cyanosis (negative) and Jaundice (negative)
Labs/Micro/Reports
Lab Data
06/08/24 03:54
06/08/24 03:54
Microbiology
06/04/24 10:03 Blood/Venous Blood Culture - Preliminary
No Growth in 4 days- Final report to follow
06/04/24 10:03 Blood/Venous Blood Culture - Preliminary
No Growth in 4 days- Final report to follow
06/04/24 22:13 Sputum Respiratory Culture - Final
Usual Respiratory Rosey
06/04/24 22:13 Sputum Gram Stain - Final
06/05/24 10:43 Feces/Stool C. difficile GDH Antigen & Toxins - Final
Negative for toxigenic C.difficile
06/04/24 23:56 Urine Legionella Urinary Antigen - Final
Negative for Legionella pneumophila Serogroup 1 antigen.
A negative result does not rule out the possiblity of
Legionella infection due to other serogroups or species of
Legionella. Clinical correlation is recommended.
06/04/24 23:56 Urine Streptococcus pneumoniae Antigen (M - Final
Negative for Streptococcus pneumoniae antigen.
A negative result does not exclude infection with
Streptococcus pneumoniae. Clinical correlation is
recommended.
06/04/24 14:09 Nose Nasal Screen MRSA (PCR) - Final
MRSA not detected - performed by PCR methodology.
--- NOTE | 2024-06-08 12:38 | CM ---
Patient from [facility]. O2 3L. Home O2 Assessment today. Receiving IV Abx. Per nurse assessment; forgetful. PT 06/07 recommends HH. OT 06/06 recommends SNF vs. HH.
Spoke with [facility] nurse Nirali; they are unable to accept the patient back today if he needs new O2. Discussed that CM should contact Nydia at [facility] tomorrow.
Met with patient and spoke with his brother Luis Eduardo on speaker phone while in room with patient;
discussed patient's current functional mobility as per PT -4 /OT -3.
Patient prefers to go home and his brother agrees, Luis Eduardo stating he needs to be able to go to [place] to walk around more- advised that decision for [place] vs [place] [facility] is multifactorial including whether patient is at this baseline with his
mobility, and that [facility] will need to agree with his return there tomorrow, and they understood.
Discussed with patient & Luis Eduardo that patient will need home O2 setup tomorrow if returning to [place], as well as VN - patient has no agency preference. Agree with Luis Eduardo that CM will arrange ambulance transport at discharge.
SNF referral placed to [facility] in case needed.
Plan follow up after seen by PT/OT again. Check if patient will need RW issued.
Plan speak with Nirali Stafford tomorrow about disposition to [facility] vs [facility].
Plan arrange home O2 and VN if d/c back to [place].
--- NOTE | 2024-06-08 15:23 | W.PN.HOSP.TC ---
Today's Communication/Plan
-
SNF placement pending -- spoke with case fitter
Otherwise doing well
Transfer to telemetry
Assessment / Plan
Assessment / Plan
Physical Exam
General: Not in acute distress
HEENT: Normocephalic and Moist mucous membranes
Respiratory: Rhonchi (Right>Left)
Cardiac: S1/S2, Regular Rhythm and Regular Rate
GI: Soft, Non Tender and Normal Bowel Sounds
Musculoskeletal: No Cyanosis and No Edema
Skin: Warm and Dry
Neuro: Awake, Alert and AO x 3
Psych: Calm and Intact Judgment/Insight
Assessment/Plan
Acute Hypoxic Respiratory Failure
Sepsis due to pneumonia
Pneumonia
Fever
-Required high flow oxygen in the ED --> now down to 3 L midflow nasal cannula
-Patient will need home oxygen on discharge: 2 to 3 L with ambulation
-CT PE study showed no PE, but did show bronchial narrowing, lymphadenopathy, and moderate bilateral pneumonia
-Vancomycin stopped as MRSA negative
-Continue Cefepime and Azithromycin --> continue antibiotics for 7 days --> switch to Levaquin
-Cultures negative
-Aspiration Precautions
-Mucinex
-Acapella device if possible-can use in the outpatient setting.
-Duoneb QID+prn nebulized bronchodilators will consider inhaled hypertonic saline (while in hospital)
-Budesonide while in hospital
-Given CT findings (including lymphadenopathy compressing airways, and the need for high-flow oxygen on admission), consulted pulmonary
-Patient will need pulmonary follow-up to evaluate mediastinal lymphadenopathy is once pneumonia is treated.
-Will need short-term repeat CT chest
-Follow-up with juice bar team member Dr. Aly
Dyspnea on Exertion for Months
-As reported by patient's brother Michael
-proBNP was quite low
-Will likely need stress test and PFTs/pulmonary evaluation outpatient
History of Influenza A infection
Essential hypertension
-Blood pressure was in the 90s to low 100s systolic, now improved to normal range
-Hold off on home Losartan for now
Hypercholesterolemia
-Continue home Atorvastatin
Depression
-Continue Bupropion and Sertraline
BPH
History of Prostate Cancer
-Continue Rapaflo and Finasteride
Normal pressure hydrocephalus (was being followed by Dr. Ashley Reno outpatient)
-EXECUTIVE ADMINISTRATIVE ASST shunt in place (present on chest x-ray)
Overactive bladder
History of urinary incontinence
Depression
Code status: Full Code (I confirmed this with patient's brother Michael in the presence of the patient)
DVT prophylaxis: Lovenox
Anticipated Discharge: Within 24 hours
Subjective/Interval History
-
Date of Service: June 08, 2024
Patient was seen and examined. He denied any chest pain or shortness of breath.
Objective Data
-
Labs:
Laboratory Results
06/08/24
03:54
WBC 12.4 H
Hgb 12.6 L
Hct 36.5 L
Plt Count 180
Sodium 139
Potassium 3.5
Chloride 103
Carbon Dioxide 26
BUN 10
Creatinine 0.6 L
Glucose 118 H
Calcium 8.4
Vital Signs:
Vital Signs
Temp Pulse Resp BP Pulse Ox
98.3 F 86 18 126/82 91
06/08/24 11:39 06/08/24 15:02 06/08/24 15:02 06/08/24 05:51 06/08/24 15:02
I&O
06/07/24 06/08/24 06/09/24
06:59 06:59 06:59
Intake Total 480 / 480
Output Total 450 / 450 1175 / 1175 100 / 100
Balance -450 / -450 -695 / -695 -100 / -100
--- NOTE | 2024-06-08 15:58 | PTCARENOTE ---
Pt downgraded to Tele, to return to [facility] tomorrow. Report given to Vee SWARTZ - Pt transferred to [facility] via wheelchair.
[2024-06-08] MEDS: LOVENOX 40 MG SC (17:14)
[2024-06-08] MEDS: OCEAN, SALINE MIST NASAL (21:06)
[2024-06-08] MEDS: LIPITOR 40 MG PO (21:06)
[2024-06-08] MEDS: STERILE WATER FOR INJECTION IV (21:06)
[2024-06-09] MEDS: STERILE WATER FOR INJECTION IV (03:33)
[2024-06-09 03:52] VITALS: BP 135/70
[2024-06-09 07:19] LABS: % Basophils 0.4 % (0-2); % Eosinophils 2.2 % (0-6); % Immature Granulocytes 4.2 % (0-0.5); % Lymphocytes 13.1 % (20.5-51.1); % Monocytes 7.1 % (1.7-9.3); Absolute Basophils 0.1 10^3/uL (0-0.2); Absolute Eosinophils 0.3 10^3/uL (0-0.7); Absolute Immature Granulocytes 0.5 10^3/uL (0-0.05); Absolute Lymphocytes 1.6 10^3/uL (1.2-3.4); Absolute Monocytes 0.9 10^3/uL (0.1-0.6); Absolute Neutrophils 8.8 10^3/uL (1.4-6.5); Hematocrit 35.8 % (39.0-52.0); Hemoglobin 12.5 g/dL (13.0-18.0); Mean Corp Hgb Conc. 34.9 g/dL (33.0-37.0); Mean Corpuscular Hgb 28.7 pg (27.0-31.0); Mean Corpuscular Volume 82.3 fL (80.0-94.0); Mean Platelet Volume 9.5 fL (7.4-10.4); Nucleated Red Blood Cells % 0 % (-); Platelet Count 203 10^3/uL (130-400); Red Blood Cell Count 4.35 10^6/uL (4.70-6.10); Red Cell Dist. Width 13.1 % (11.5-14.5); White Blood Cell Count 12.1 10^3/uL (4.8-10.8)
[2024-06-09] MEDS: PULMICORT 0.5 MG INH ×2 (07:32→19:51)
[2024-06-09] MEDS: DUONEB 3 ML INH ×4 (07:32→19:51)
[2024-06-09 07:39] VITALS: BP 148/79
[2024-06-09 08:01] LABS: Blood Urea Nitrogen 10 mg/dl (9-20); Calcium 8.6 mg/dl (8.4-10.2); Carbon Dioxide 30 mmol/L (22-30); Chloride 100 mmol/L (98-107); Estimated Creatinine Clearance 101 ml/min; Glucose 97 mg/dl (70-99); Magnesium 2.1 mg/dl (1.6-2.3); Potassium 3.6 mmol/L (3.5-5.1); Sodium 137 mmol/L (135-145); eGFR > 60.00
[2024-06-09] MEDS: FLOMAX 0.4 MG PO (09:40)
[2024-06-09] MEDS: VITAMIN D3 (cholecalciferol) 50 MCG PO (09:41)
[2024-06-09] MEDS: ZOLOFT 50 MG PO (09:42)
[2024-06-09] MEDS: LEVAQUIN 750 MG PO (09:42)
[2024-06-09] MEDS: PROSCAR 5 MG PO (09:43)
[2024-06-09] MEDS: WELLBUTRIN XL (24 hour extended release) 150 MG PO (09:44)
[2024-06-09] MEDS: VITAMIN B-12 2000 MCG PO (09:44)
[2024-06-09] MEDS: MUCINEX 1200 MG PO ×2 (09:45→22:00)
[2024-06-09] MEDS: FEOSOL 325 MG PO (09:45)
[2024-06-09] MEDS: METAMUCIL, KONSYL 1 PACKET PO ×2 (09:46→22:01)
[2024-06-09] MEDS: OCEAN, SALINE MIST 1 SPRAYS NASAL ×4 (09:47→22:02)
[2024-06-09 11:00] VITALS: BP 139/84
--- NOTE | 2024-06-09 11:12 | W.PN.HOSP.TC ---
Today's Communication/Plan
-
Discharge today
Assessment / Plan
Assessment / Plan
Physical Exam
General: Not in acute distress
HEENT: Normocephalic and Moist mucous membranes
Respiratory: Rhonchi (Right>Left)
Cardiac: S1/S2, Regular Rhythm and Regular Rate
GI: Soft, Non Tender and Normal Bowel Sounds
Musculoskeletal: No Cyanosis and No Edema
Skin: Warm and Dry
Neuro: Awake, Alert and AO x 3
Psych: Calm and Intact Judgment/Insight
Assessment/Plan
Acute Hypoxic Respiratory Failure
Sepsis due to pneumonia
Pneumonia
Fever
-Required high flow oxygen in the ED --> now down to 3 L midflow nasal cannula
-Patient will need home oxygen on discharge: 2 to 3 L with ambulation
-CT PE study showed no PE, but did show bronchial narrowing, lymphadenopathy, and moderate bilateral pneumonia
-Vancomycin stopped as MRSA negative
-Continue Cefepime and Azithromycin --> continue antibiotics for 7 days --> now continue Levaquin
-Cultures negative
-Aspiration Precautions
-Mucinex
-Acapella device if possible-can use in the outpatient setting.
-Duoneb QID+prn nebulized bronchodilators will consider inhaled hypertonic saline (while in hospital)
-Budesonide while in hospital
-Given CT findings (including lymphadenopathy compressing airways, and the need for high-flow oxygen on admission), consulted pulmonary
-Patient will need pulmonary follow-up to evaluate mediastinal lymphadenopathy once pneumonia is treated.
-Will need short-term repeat CT chest
-Follow-up with special diet cook Dr. Aly
Dyspnea on Exertion for Months
-As reported by patient's brother Michael
-proBNP was quite low
-Will likely need stress test and PFTs/pulmonary evaluation outpatient
History of Influenza A infection
Essential hypertension
-Blood pressure was in the 90s to low 100s systolic, now improved to normal to elevated range
-Hold off on home Losartan for now
Hypercholesterolemia
-Continue home Atorvastatin
Depression
-Continue Bupropion and Sertraline
BPH
History of Prostate Cancer
-Continue Rapaflo and Finasteride
Normal pressure hydrocephalus (was being followed by Dr. Ashley Reno outpatient)
-SOCIAL WORK COORDINATOR shunt in place (present on chest x-ray)
Overactive bladder
History of urinary incontinence
Depression
Code status: Full Code (I confirmed this with patient's brother Michael in the presence of the patient)
DVT prophylaxis: Lovenox
More than 30 minutes spent in discharge including
Final examination of the patient
Summarizing hospital stay
Instructions for continuing care to all relevant caregivers
Preparation of discharge records, prescriptions, and referral forms
Total time spent (in minutes): 41
Anticipated Discharge: Today
Subjective/Interval History
-
Date of Service: June 09, 2024
Patient was seen and examined. He denied any chest pain or shortness of breath.
Objective Data
-
Labs:
Laboratory Results
06/09/24
07:04
WBC 12.1 H
Hgb 12.5 L
Hct 35.8 L
Plt Count 203
Sodium 137
Potassium 3.6
Chloride 100
Carbon Dioxide 30
BUN 10
Creatinine 0.6 L
Glucose 97
Calcium 8.6
Vital Signs:
Vital Signs
Temp Pulse Resp BP Pulse Ox
98.1 F 70 17 148/79 94
06/09/24 07:39 06/09/24 11:06 06/09/24 11:06 06/09/24 07:39 06/09/24 11:06
I&O
06/08/24 06/09/24 06/10/24
06:59 06:59 06:59
Intake Total 480 / 480 480 / 480
Output Total 1175 / 1175 150 / 150
Balance -695 / -695 330 / 330
--- NOTE | 2024-06-09 13:34 | CM ---
Addendum entered by GIANNA Avila 06/09/24 16:05:
Received call from Jaquelin in admissions at [facility] who stated that patient is not Medicare primary.
Patient does not know his insurance. Nydia at [facility] per Jaquelin from [facility] stated that he has a PPO plan but is unsure which one. Spoke with admissions but they are also unsure at this point.
Jaquelin updated that if patient does not have Medicare, he will not get auth to transfer to SNF and will need to go back to [facility]. Will f/u with Nydia from [facility]. Will also have to order o2 for patient.
Addendum entered by GIANNA Avila 06/09/24 13:53:
IMM signed, on chart.
Original Note:
Spoke with Jaquelin in admissions at [facility] who stated that she spoke with Nydia in admissions at [facility] and was advised that patient will need to go to the [facility] @ [facility], first before going back to Assisted Living.
Attending updated.
Patient updated and agreeable.
Patient new to o2 and therefore will set up with ambulance and medical necessity.
Will also complete transfer sheet for [employer].
# For report [phone] and fax # [phone]
Plan: Case management will continue to follow and assist with discharge planning. SNF at [facility].
[2024-06-09 15:00] VITALS: BP 118/77
[2024-06-09] MEDS: LOVENOX 40 MG SC (18:25)
[2024-06-09 19:02] VITALS: BP 141/71
[2024-06-09 22:46] VITALS: BP 122/48
[2024-06-10] MEDS: DUONEB 3 ML INH ×4 (07:33→20:22)
[2024-06-10] MEDS: PULMICORT 0.5 MG INH ×2 (07:34→20:22)
[2024-06-10 07:53] VITALS: BP 150/70
[2024-06-10] MEDS: VITAMIN D3 (cholecalciferol) 50 MCG PO (08:43)
[2024-06-10] MEDS: OCEAN, SALINE MIST 1 SPRAYS NASAL ×4 (08:43→22:13)
[2024-06-10] MEDS: WELLBUTRIN XL (24 hour extended release) 150 MG PO (08:44)
[2024-06-10] MEDS: MUCINEX 1200 MG PO ×2 (08:44→19:14)
[2024-06-10] MEDS: ZOLOFT 50 MG PO (08:45)
[2024-06-10] MEDS: FEOSOL 325 MG PO (08:45)
[2024-06-10] MEDS: PROSCAR 5 MG PO (08:45)
[2024-06-10] MEDS: FLOMAX 0.4 MG PO (08:46)
[2024-06-10] MEDS: LEVAQUIN 750 MG PO (08:47)
[2024-06-10] MEDS: METAMUCIL, KONSYL 1 PACKET PO ×2 (08:48→19:15)
[2024-06-10] MEDS: VITAMIN B-12 2000 MCG PO (08:48)
--- NOTE | 2024-06-10 10:12 | CM ---
Addendum entered by GIANNA Avila 06/10/24 15:53:
Patient's brother updated that pending insurance, patient will either go back to [facility] or [place]. RN stated that patient is now off of o2. Patient's brother stated that he feels that patient would do better going right back to his [facility]. Will
await insurance determination.
Original Note:
Spoke with Nydia at [facility] admissions who stated that she would support efforts to try and obtain an auth through patient's PPO plan, as they feel that he would do [facility], especially as he is
desatting. Nydia sent patient's PPO plan information over:
Medicare Health Insurance
[employer] Advantage

No phone number was listed on card. Will attempt to call [phone].
Plan: Case management will continue to follow and assist with discharge planning. Hopeful auth so that patient can transfer to [facility].
[2024-06-10 10:33] VITALS: BP 124/81; PULSE 98; O2SAT 92
--- NOTE | 2024-06-10 12:06 | CM ---
Accepted at [facility]- NPI# [id number], Dr Navjot Cisneros NPI# [id number]
Per facilitiy patient has [employer] Advantage, patient is a [place] [address] ID# [id number]
Call to provider services kitty located on back of insurance card , spoke with Benny Stephenson
Per Benny DAMON will need to call the Voicemail line at [phone] and leave a message. Call back should be received within 24 hours.
Benny also provided a fax number.
Per Benny, auth could be requested in [employer], however we did not have access to the correct [employer] (verified with Benny).
MARISOL left with information requesting call back to obtain auth for skilled rehab.
MARISOL went on Website found on back of card [employer] and located general precertification request form and faxed clinicals to [phone].
Plan: skilled rehab once insurance auth obtained.
--- NOTE | 2024-06-10 14:49 | W.PN.HOSP.TC ---
Today's Communication/Plan
-
Discharge today
Assessment / Plan
Assessment / Plan
Physical Exam
General: Not in acute distress
HEENT: Normocephalic and Moist mucous membranes
Respiratory: Rhonchi (Right>Left)
Cardiac: S1/S2, Regular Rhythm and Regular Rate
GI: Soft, Non Tender and Normal Bowel Sounds
Musculoskeletal: No Cyanosis and No Edema
Skin: Warm and Dry
Neuro: Awake, Alert and AO x 3
Psych: Calm and Intact Judgment/Insight
Assessment/Plan
Acute Hypoxic Respiratory Failure
Sepsis due to pneumonia
Pneumonia
Fever
-Required high flow oxygen in the ED --> now down to 3 L midflow nasal cannula
-Patient will need home oxygen on discharge: 2 to 3 L with ambulation
-CT PE study showed no PE, but did show bronchial narrowing, lymphadenopathy, and moderate bilateral pneumonia
-Vancomycin stopped as MRSA negative
-Continue Cefepime and Azithromycin --> continue antibiotics for 7 days --> now continue Levaquin
-Cultures negative
-Aspiration Precautions
-Mucinex
-Acapella device if possible-can use in the outpatient setting.
-Duoneb QID+prn nebulized bronchodilators will consider inhaled hypertonic saline (while in hospital)
-Budesonide while in hospital
-Given CT findings (including lymphadenopathy compressing airways, and the need for high-flow oxygen on admission), consulted pulmonary
-Patient will need pulmonary follow-up to evaluate mediastinal lymphadenopathy once pneumonia is treated.
-Will need short-term repeat CT chest
-Follow-up with astrobiologist Dr. Aly
Dyspnea on Exertion for Months
-As reported by patient's brother Michael
-proBNP was quite low
-Will likely need stress test and PFTs/pulmonary evaluation outpatient
History of Influenza A infection
Essential hypertension
-Blood pressure was in the 90s to low 100s systolic, now improved to normal to elevated range
-Hold off on home Losartan for now
Hypercholesterolemia
-Continue home Atorvastatin
Depression
-Continue Bupropion and Sertraline
BPH
History of Prostate Cancer
-Continue Rapaflo and Finasteride
Normal pressure hydrocephalus (was being followed by Dr. Ashley Reno outpatient)
-STEEL LAYOUT WORKER shunt in place (present on chest x-ray)
Overactive bladder
History of urinary incontinence
Depression
Code status: Full Code (I confirmed this with patient's brother Michael in the presence of the patient)
DVT prophylaxis: Lovenox
More than 30 minutes spent in discharge including
Final examination of the patient
Summarizing hospital stay
Instructions for continuing care to all relevant caregivers
Preparation of discharge records, prescriptions, and referral forms
Total time spent (in minutes): 33
Anticipated Discharge: Today
Subjective/Interval History
-
Date of Service: June 10, 2024
Patient was seen and examined. He denied any complaints.
Objective Data
-
Vital Signs:
Vital Signs
Temp Pulse Resp BP Pulse Ox
98.4 F 80 16 150/70 92
06/10/24 07:53 06/10/24 11:37 06/10/24 11:37 06/10/24 07:53 06/10/24 12:23
I&O
06/09/24 06/10/24 06/11/24
06:59 06:59 06:59
Intake Total 480 / 480 1700 / 1700
Output Total 150 / 150 1100 / 1100
Balance 330 / 330 600 / 600
[2024-06-10 15:21] VITALS: BP 111/76
[2024-06-10] MEDS: LOVENOX 40 MG SC (17:32)
[2024-06-10] MEDS: LIPITOR 40 MG PO (19:15)
--- NOTE | 2024-06-10 21:00 | PTCARENOTE ---
Assumed care of patient from previous RN - patient resting in bed comfortably, no complaints at this time, denies pain/SOB. Call hernandez in reach, bed alarm intact and maintained, will continue to monitor.
[2024-06-10 23:19] VITALS: BP 138/71
[2024-06-11 07:57] VITALS: BP 140/79
[2024-06-11] MEDS: DUONEB 3 ML INH ×4 (08:00→19:19)
[2024-06-11] MEDS: PULMICORT 0.5 MG INH ×2 (08:00→19:20)
[2024-06-11] MEDS: METAMUCIL, KONSYL 1 PACKET PO ×2 (08:45→21:05)
[2024-06-11] MEDS: ZOLOFT 50 MG PO (08:45)
[2024-06-11] MEDS: PROSCAR 5 MG PO (08:45)
[2024-06-11] MEDS: LEVAQUIN 750 MG PO (08:45)
[2024-06-11] MEDS: VITAMIN D3 (cholecalciferol) 50 MCG PO (08:45)
[2024-06-11] MEDS: FEOSOL 325 MG PO (08:45)
[2024-06-11] MEDS: FLOMAX 0.4 MG PO (08:46)
[2024-06-11] MEDS: WELLBUTRIN XL (24 hour extended release) 150 MG PO (08:46)
[2024-06-11] MEDS: MUCINEX 1200 MG PO ×2 (08:46→21:05)
[2024-06-11] MEDS: OCEAN, SALINE MIST 1 SPRAYS NASAL ×4 (08:49→21:05)
[2024-06-11] MEDS: VITAMIN B-12 2000 MCG PO (08:53)
--- NOTE | 2024-06-11 10:13 | CM ---
Patient from at [place] at [facility], has been accepted at [facility] for skilled rehab, insurance auth required.
Patient has [employer] Advantage, patient is a [place] [address] ID# [id number]
HORACIO Marcum from [employer]- [phone] requesting additional PT//OT notes.
Therapy notes faxed to [phone].
Awit determination.
Plan: skilled rehab once auth available.
--- NOTE | 2024-06-11 15:02 | CM ---
Addendum entered by GIANNA Avila 06/11/24 16:54:
New Resp eval showed that patient no longer needs o2. CM Director called Nydia in admissions who stated that she can take patient back in the am.
Patient's brother updated and will transport back.
Original Note:
Spoke with Nydia from [place] admissions this morning who stated that if patient remains on o2 and gets auth he should go to [facility].
Spoke with patient's brother who stated that he really would like for patient to return back to his [facility] and stated that he met with patient yesterday who denied the need for o2.
Spoke with RN.
Requested new Resp threrapy eval.
Will call Nydia once know there is a determination regarding where patient needs to go.
Plan: Case management will continue to follow and assist with discharge planning. SNF [facility].
--- NOTE | 2024-06-11 15:07 | W.PN.HOSP.TC ---
Addendum entered and electronically signed by Ko Lazaro MD 06/11/24 23:26:
Patient does not need oxygen per home oxygen assessment performed again today.
Original Note:
Today's Communication/Plan
-
Discharge today
Assessment / Plan
Assessment / Plan
Physical Exam
General: Not in acute distress
HEENT: Normocephalic and Moist mucous membranes
Respiratory: Rhonchi (Right>Left)
Cardiac: S1/S2, Regular Rhythm and Regular Rate
GI: Soft, Non Tender and Normal Bowel Sounds
Musculoskeletal: No Cyanosis and No Edema
Skin: Warm and Dry
Neuro: Awake, Alert and AO x 3
Psych: Calm and Intact Judgment/Insight
Assessment/Plan
Acute Hypoxic Respiratory Failure
Sepsis due to pneumonia
Pneumonia
Fever
-Required high flow oxygen in the ED --> now down to 3 L midflow nasal cannula
-Patient will need home oxygen on discharge: 2 to 3 L with ambulation
-CT PE study showed no PE, but did show bronchial narrowing, lymphadenopathy, and moderate bilateral pneumonia
-Vancomycin stopped as MRSA negative
-Continue Cefepime and Azithromycin --> continue antibiotics for 7 days --> now continue Levaquin
-Cultures negative
-Aspiration Precautions
-Mucinex
-Acapella device if possible-can use in the outpatient setting.
-Duoneb QID+prn nebulized bronchodilators will consider inhaled hypertonic saline (while in hospital)
-Budesonide while in hospital
-Given CT findings (including lymphadenopathy compressing airways, and the need for high-flow oxygen on admission), consulted pulmonary
-Patient will need pulmonary follow-up to evaluate mediastinal lymphadenopathy once pneumonia is treated.
-Will need short-term repeat CT chest
-Follow-up with rubber production machine operator Dr. Aly
Dyspnea on Exertion for Months
-As reported by patient's brother Michael
-proBNP was quite low
-Will likely need stress test and PFTs/pulmonary evaluation outpatient
History of Influenza A infection
Essential hypertension
-Blood pressure was in the 90s to low 100s systolic, now improved to normal to elevated range
-Hold off on home Losartan for now
Hypercholesterolemia
-Continue home Atorvastatin
Depression
-Continue Bupropion and Sertraline
BPH
History of Prostate Cancer
-Continue Rapaflo and Finasteride
Normal pressure hydrocephalus (was being followed by Dr. Ashley Reno outpatient)
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
Overactive bladder
History of urinary incontinence
Depression
Code status: Full Code (I confirmed this with patient's brother Michael in the presence of the patient)
DVT prophylaxis: Lovenox
More than 30 minutes spent in discharge including
Final examination of the patient
Summarizing hospital stay
Instructions for continuing care to all relevant caregivers
Preparation of discharge records, prescriptions, and referral forms
Total time spent (in minutes): 35
Anticipated Discharge: Today
Subjective/Interval History
-
Date of Service: June 11, 2024
Patient was seen and examined. He denied any chest pain or shortness of breath.
Objective Data
-
Vital Signs:
Vital Signs
Temp Pulse Resp BP Pulse Ox
98.3 F 84 16 140/79 92
06/11/24 07:57 06/11/24 12:00 06/11/24 12:00 06/11/24 07:57 06/11/24 07:57
I&O
06/10/24 06/11/24 06/12/24
06:59 06:59 06:59
Intake Total 1700 / 1700 600 / 600
Output Total 1100 / 1100 550 / 550
Balance 600 / 600 50 / 50
[2024-06-11 15:26] VITALS: BP 137/78
[2024-06-11] MEDS: LOVENOX 40 MG SC (17:23)
[2024-06-11 23:10] VITALS: BP 137/71
[2024-06-12 07:10] VITALS: BP 148/93
[2024-06-12] MEDS: PULMICORT 0.5 MG INH (07:42)
[2024-06-12] MEDS: DUONEB 3 ML INH ×3 (07:42→15:20)
[2024-06-12] MEDS: ZOLOFT 50 MG PO (08:26)
[2024-06-12] MEDS: METAMUCIL, KONSYL 1 PACKET PO (08:26)
[2024-06-12] MEDS: OCEAN, SALINE MIST 1 SPRAYS NASAL ×2 (08:26→12:54)
[2024-06-12] MEDS: VITAMIN B-12 2000 MCG PO (08:26)
[2024-06-12] MEDS: WELLBUTRIN XL (24 hour extended release) 150 MG PO (08:26)
[2024-06-12] MEDS: FEOSOL 325 MG PO (08:26)
[2024-06-12] MEDS: LEVAQUIN 750 MG PO (08:26)
[2024-06-12] MEDS: MUCINEX 1200 MG PO (08:26)
[2024-06-12] MEDS: FLOMAX 0.4 MG PO (08:26)
[2024-06-12] MEDS: PROSCAR 5 MG PO (08:26)
[2024-06-12] MEDS: VITAMIN D3 (cholecalciferol) 50 MCG PO (08:26)
--- NOTE | 2024-06-12 10:59 | W.PN.HOSP.TC ---
Addendum entered and electronically signed by Isak Ortiz MD 06/12/24 13:30:
Addendum
Patient was evaluated by respiratory therapy, no need for oxygen
Discussed with nurse case manager
Prescription for PT/OT given
Total discharge time spent to see the patient, examine the patient, review data and lab results, discuss discharge plan with patient, nursing staff around 65 minutes
Original Note:
Today's Communication/Plan
-
dc
Assessment / Plan
Assessment / Plan
Physical Exam
General: Not in acute distress
HEENT: Normocephalic and Moist mucous membranes
Respiratory: no Rhonchi
Cardiac: S1/S2, Regular Rhythm and Regular Rate
GI: Soft, Non Tender and Normal Bowel Sounds
Musculoskeletal: No Cyanosis and No Edema
Skin: Warm and Dry
Neuro: Awake, Alert and AO x 3
Psych: Calm and Intact Judgment/Insight
Assessment/Plan
Acute Hypoxic Respiratory Failure
Sepsis due to pneumonia
Pneumonia
Fever
much improved, off nasal O2
-CT PE study showed no PE, but did show bronchial narrowing, lymphadenopathy, and moderate bilateral pneumonia
-Vancomycin stopped as MRSA negative
-s/p Cefepime and Azithromycin, finished Abx more than 7 days.
-Cultures negative
-Aspiration Precautions
-Mucinex
-Acapella device if possible-can use in the outpatient setting.
-Duoneb QID+prn nebulized bronchodilators will consider inhaled hypertonic saline (while in hospital)
-Budesonide while in hospital
-Given CT findings (including lymphadenopathy compressing airways, and the need for high-flow oxygen on admission), consulted pulmonary
-Patient will need pulmonary follow-up to evaluate mediastinal lymphadenopathy once pneumonia is treated.
-Follow-up with horse wrangler Dr. Aly
Dyspnea on Exertion for Months
-As reported by patient's brother Michael
-proBNP was quite low
-Will likely need stress test and PFTs/pulmonary evaluation outpatient
# History of Influenza A infection
#Essential hypertension
Stable
#Hypercholesterolemia
-Continue home Atorvastatin
Depression
-Continue Bupropion and Sertraline
BPH
History of Prostate Cancer
-Continue Rapaflo and Finasteride
Normal pressure hydrocephalus (was being followed by Dr. Ashley Reno outpatient)
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
Overactive bladder
History of urinary incontinence
Depression
Code status: Full Code (I confirmed this with patient's brother Michael in the presence of the patient)
DVT prophylaxis: Lovenox
Total discharge time spent to see the patient, examine the patient, review data and lab results, discuss discharge plan with patient, nursing staff around 65 minutes
Anticipated Discharge: Today
Subjective/Interval History
-
Date of Service: June 12, 2024
He feels ready to leave hospital
He denies chest pain or sob
Objective Data
-
Vital Signs:
Vital Signs
Temp Pulse Resp BP Pulse Ox
98.0 F 97 16 148/93 96
06/12/24 07:10 06/12/24 07:42 06/12/24 07:42 06/12/24 07:10 06/12/24 07:42
I&O
06/11/24 06/12/24 06/13/24
06:59 06:59 06:59
Intake Total 600 / 600 1140 / 1140
Output Total 550 / 550 950 / 950
Balance 50 / 50 190 / 190
--- NOTE | 2024-06-12 12:06 | CM ---
Nydia in admissions confirmed that she can take patient back today, pending paperwork stating that he no longer requires o2. Nydia requested script for OT/PT. Attending updated.
# For report [phone] fax# [phone]
Plan: Case management will continue to follow and assist with discharge planning. Back to [facility].
--- NOTE | 2024-06-12 13:13 | W.DCSUMMARY ---
Discharge Summary
Discharge Data
Date of Admission: 06/04/24
Date of Discharge: 06/12/24
-
Pending Results: No
Hospital Course
78 years old male presented with respiratory distress. Patient was diagnosed with acute hypoxemic respiratory failure requiring high flow oxygen. Scan of the chest showed moderate bilateral pneumonia with no significant pleural effusion, moderate
mediastinal, right hilar lymphadenopathy. Patient was evaluated by pulmonary doctor. He started to improve with weaning down his oxygen requirement. He remained afebrile. He received intravenous antibiotics. Blood culture did not show any
growth. Sputum culture did not show any growth. Negative COVID, Legionella and pneumococcal antigens. Negative influenza and RSV screening. Patient finished course of antibiotic. Pulmonary doctor recommended outpatient follow-up. Patient
remained hemodynamically stable and was discharged back to [facility] in a stable condition.
Discharge Plan
-
Patient Disposition: Custodial/SNF
Discharge Diagnosis/Procedures: Acute Hypoxic Respiratory Failure, resolved
Sepsis due to pneumonia, finished antibiotics.
Dyspnea on Exertion for Months, f/w pulmonary in office.
History of Influenza A infection
Essential hypertension
Hypercholesterolemia
Depression, mood is pleasant
Benign Prostatic Hyperplasia
History of Prostate Cancer
Normal pressure hydrocephalus (was being followed by Dr. Ashley Reno outpatient)-CARROT HARVESTER shunt in place (present on chest x-ray)
Overactive bladder
History of urinary incontinence
Depression
Condition: Good
Diet: Low Fat and Low Cholesterol
Activity Restrictions/Additional Instructions:
-Acapella Device if possible to help with patient's breathing.
-Follow aspiration precautions when eating or drinking.
-Patient will need pulmonary follow-up to evaluate mediastinal lymphadenopathy once pneumonia is treated.
-Will need short-term repeat CT Chest.
-Follow-up with tea taster Dr. Aly.
Referrals:
Barry Aly MD [Active] - in two to four weeks (full PFTs on day of office visit)
Theo Adhikari MD [Family Provider] - in less than 1 week
Prescriptions:
Continued
silodosin [Rapaflo] 8 MG capsule
8 mg PO DAILY
acetaminophen 325 mg Tablet
650 mg PO Q4H PRN (Reason: fever)
sertraline 50 MG tablet
50 mg PO DAILY
atorvastatin 40 MG tablet
40 mg PO Q48H
loperamide 2 mg Tablet
4 mg PO PRN PRN (Reason: DIARRHEA )
ferrous sulfate 325 mg (65 mg iron) Tablet
325 mg PO DAILY
psyllium husk 0.52 gram Capsule
0.52 g PO BID
bupropion HCl [Wellbutrin XL] 150 mg Tablet Extended Release 24 Hr
150 mg PO DAILY
cyanocobalamin (vitamin B-12) [Vitamin B-12] 1,000 mcg Tablet
2,000 mcg PO DAILY
cholecalciferol (vitamin D3) 25 mcg (1,000 unit) Tablet
50 mcg PO DAILY
polyethylene glycol 3350 [Miralax] 17 gram Powder In Packet
17 g PO DAILYPRN PRN (Reason: constipation)
cetirizine [Zyrtec] 10 mg Tablet
10 mg PO HS
triamcinolone acetonide 0.1 % Cream
1 applic TOPICAL BIDPRN PRN (Reason: ear eczema)
losartan 25 mg Tablet
25 mg PO QPM
docusate sodium 100 mg Capsule
100 mg PO BIDPRN PRN (Reason: constipation)
ipratropium bromide 21 mcg (0.03 %) [place],Non-Aerosol
2 spray INTRANASAL BID
finasteride 5 mg Tablet
5 mg PO DAILY
Saline Nasal Mist 0.65 % Aerosol,[place]
2 spray INTRANASAL QID
guaifenesin [Mucinex] 600 mg Tablet Extended Release 12hr
600 mg PO DAILY
Discharge Orders:
Discharge Patient (As Directed); Ordered 06/11/24
Ordered By: Ko Lazaro
Discharge Date and Time
Print Language: LUXEMBOURGISH
[2024-06-12 15:05] VITALS: BP 130/91
--- NOTE | 2024-06-13 15:54 | CM ---
HORACIO Kilgore from [employer]/[facility]
Skilled rehab was denied- not medically necessary
Peer to Peer review number [phone]
reference Number [id number]
== END 2024-06-12 17:07 | DRG 871 ==
LOC: 3 WEST ACU 13:06
PROVIDERS: Internal Medicine Critical Care Medicine; ADMITTING PHYSICIAN Hospitalist; ATTENDING PHYSICIAN Internal Medicine; CONSULT PHYSICIAN Internal Medicine Critical Care Medicine; EMERGENCY PHYSICIAN Emergency Medicine; FAMILY PHYSICIAN Internal Medicine Geriatric Medicine
PROC: 5A0935A Assistance with Respiratory Ventilation, Less than 24 Consecutive Hours, High Flow/Velocity Cannula (ICD-10-PCS; 2024-06-04)
DX: A41.9 Sepsis, unspecified organism (principal); J15.9 Unspecified bacterial pneumonia; J96.01 Acute respiratory failure with hypoxia; G91.2 (Idiopathic) normal pressure hydrocephalus; E78.00 Pure hypercholesterolemia, unspecified; I10 Essential (primary) hypertension; N40.1 Benign prostatic hyperplasia with lower urinary tract symptoms; R59.0 Localized enlarged lymph nodes; J98.09 Other diseases of bronchus, not elsewhere classified; F32.A Depression, unspecified; N32.81 Overactive bladder; Z96.643 Presence of artificial hip joint, bilateral; Z85.46 Personal history of malignant neoplasm of prostate; Z87.891 Personal history of nicotine dependence; Z11.52 Encounter for screening for COVID-19; Z98.2 Presence of cerebrospinal fluid drainage device
CPT/HCPCS: 71045; 71275; 80048; 80053; 82805; 83605; 83735; 83880; 84145; 84484; 85025; 86803; 87040; 87070; 87205; 87324; 87449; 87502; 87641; 87807; 87811; 87899; 93005; 94640; 96365; 96366; 96367; 96375; 97116; 97163; 97167; 97530; 97535; 99291; Q9967

== ENCOUNTER → 2024-07-09 09:42 | Outpatient (REF) | payer OTHER, SELFPAY ==
[2024-07-09 10:23] LABS: % Basophils 0.6 % (0-2); % Eosinophils 3.3 % (0-6); % Immature Granulocytes 0.5 % (0-0.5); % Lymphocytes 31.1 % (20.5-51.1); % Monocytes 8.1 % (1.7-9.3); % Neutrophils 56.4 % (42.2-75.2); Absolute Basophils 0.1 10^3/uL (0-0.2); Absolute Eosinophils 0.3 10^3/uL (0-0.7); Absolute Lymphocytes 2.7 10^3/uL (1.2-3.4); Absolute Monocytes 0.7 10^3/uL (0.1-0.6); Absolute Neutrophils 4.8 10^3/uL (1.4-6.5); Hematocrit 44.4 % (39.0-52.0); Mean Corp Hgb Conc. 31.5 g/dL (33.0-37.0); Mean Corpuscular Hgb 27.9 pg (27.0-31.0); Mean Corpuscular Volume 88.6 fL (80.0-94.0); Mean Platelet Volume 9.6 fL (7.4-10.4); Nucleated Red Blood Cells % 0 % (-); Platelet Count 171 10^3/uL (130-400); Red Blood Cell Count 5.01 10^6/uL (4.70-6.10); Red Cell Dist. Width 14.4 % (11.5-14.5); White Blood Cell Count 8.6 10^3/uL (4.8-10.8)
[2024-07-09 12:13] LABS: ALT (SGPT) 19 U/L (0-50); AST (SGOT) 23 U/L (17-59); Albumin 4.1 g/dl (3.5-5.0); Alkaline Phosphatase 91 U/L (38-126); Blood Urea Nitrogen 20 mg/dl (9-20); Calcium 8.7 mg/dl (8.4-10.2); Carbon Dioxide 25 mmol/L (22-30); Chloride 102 mmol/L (98-107); Glucose 96 mg/dl (70-99); Potassium 4.7 mmol/L (3.5-5.1); Sodium 137 mmol/L (135-145); Total Bilirubin 0.7 mg/dl (0.2-1.3); Total Protein 6.3 g/dl (6.3-8.2); eGFR > 60.00
== END ==
LOC: OLABLV 09:42
PROVIDERS: ATTENDING PHYSICIAN Internal Medicine
DX: I10 Essential (primary) hypertension (principal); E78.5 Hyperlipidemia, unspecified
CPT/HCPCS: 36415; 80053; 85025

== ENCOUNTER → 2024-08-13 07:05 | Outpatient (REF) | payer OTHER, SELFPAY | LOC: RAD 07:05 | PROVIDERS: ATTENDING PHYSICIAN Nurse Practitioner Family; FAMILY PHYSICIAN Internal Medicine Geriatric Medicine | DX: R59.1 Generalized enlarged lymph nodes (principal) | CPT/HCPCS: 71260; Q9967 ==

== ENCOUNTER → 2024-09-01 08:46 | Outpatient (REF) | payer OTHER, SELFPAY | LOC: HWRAD 08:46 | PROVIDERS: ATTENDING PHYSICIAN Neurological Surgery; FAMILY PHYSICIAN Internal Medicine Geriatric Medicine | DX: G91.2 (Idiopathic) normal pressure hydrocephalus (principal) | CPT/HCPCS: 70450 ==

== ENCOUNTER → 2024-11-05 09:52 | Outpatient (REF) | payer OTHER, SELFPAY ==
[2024-11-05 11:40] LABS: % Basophils 0.5 % (0-2); % Eosinophils 3.7 % (0-6); % Immature Granulocytes 0.4 % (0-0.5); % Lymphocytes 27.6 % (20.5-51.1); % Monocytes 8.3 % (1.7-9.3); % Neutrophils 59.5 % (42.2-75.2); Absolute Eosinophils 0.3 10^3/uL (0-0.7); Absolute Lymphocytes 2.3 10^3/uL (1.2-3.4); Absolute Monocytes 0.7 10^3/uL (0.1-0.6); Absolute Neutrophils 4.9 10^3/uL (1.4-6.5); Hematocrit 42.9 % (39.0-52.0); Hemoglobin 14.3 g/dL (13.0-18.0); Mean Corp Hgb Conc. 33.3 g/dL (33.0-37.0); Mean Corpuscular Hgb 28.3 pg (27.0-31.0); Mean Corpuscular Volume 84.8 fL (80.0-94.0); Nucleated Red Blood Cells % 0 % (-); Platelet Count 179 10^3/uL (130-400); Red Blood Cell Count 5.06 10^6/uL (4.70-6.10); Red Cell Dist. Width 14.3 % (11.5-14.5); White Blood Cell Count 8.3 10^3/uL (4.8-10.8)
[2024-11-05 12:19] LABS: ALT (SGPT) 15 U/L (0-50); AST (SGOT) 17 U/L (17-59); Albumin 4.2 g/dl (3.5-5.0); Alkaline Phosphatase 86 U/L (38-126); Blood Urea Nitrogen 17 mg/dl (9-20); Carbon Dioxide 24 mmol/L (22-30); Chloride 108 mmol/L (98-107); Glucose 108 mg/dl (70-99); HDL Cholesterol 39 mg/dl; Iron 70 ug/dl (49-181); LDL Cholesterol, Calculated 99 mg/dl; Potassium 4.7 mmol/L (3.5-5.1); Sodium 140 mmol/L (135-145); Total Bilirubin 0.7 mg/dl (0.2-1.3); Total Cholesterol 154 mg/dl (50-199); Total Protein 6.4 g/dl (6.3-8.2); Triglyceride 80 mg/dl (10-149); Very Low Density Lipoprotein 16 mg/dl (0-30); eGFR > 60.00
[2024-11-05 12:29] LABS: Percent Saturation 24 % (20-50); Total Iron Binding Capacity 290 ug/dl (261-462)
== END ==
LOC: OLABLV 09:52
PROVIDERS: ATTENDING PHYSICIAN Internal Medicine Geriatric Medicine
DX: Z99.89 Dependence on other enabling machines and devices (principal); F32.2 Major depressive disorder, single episode, severe without psychotic features; I10 Essential (primary) hypertension; N40.0 Benign prostatic hyperplasia without lower urinary tract symptoms; E78.2 Mixed hyperlipidemia; D50.9 Iron deficiency anemia, unspecified; R53.83 Other fatigue; M25.552 Pain in left hip; Z13.31 Encounter for screening for depression; R60.9 Edema, unspecified
CPT/HCPCS: 36415; 80053; 80061; 82728; 83540; 83550; 85025

== ENCOUNTER → 2024-12-31 10:53 | Outpatient (REF) | payer OTHER, SELFPAY ==
[2024-12-31 11:11] LABS: Hematocrit 41.1 % (39.0-52.0); Hemoglobin 13.5 g/dL (13.0-18.0); Mean Corp Hgb Conc. 32.8 g/dL (33.0-37.0); Mean Corpuscular Volume 85.6 fL (80.0-94.0); Nucleated Red Blood Cells % 0 % (-); Platelet Count 145 10^3/uL (130-400); Red Cell Dist. Width 14.1 % (11.5-14.5)
[2024-12-31 11:24] LABS: Albumin 4.0 g/dl (3.5-5.0); Blood Urea Nitrogen 12 mg/dl (9-20); Calcium 8.5 mg/dl (8.4-10.2); Carbon Dioxide 26 mmol/L (22-30); Chloride 107 mmol/L (98-107); Glucose 95 mg/dl (70-99); Potassium 4.1 mmol/L (3.5-5.1); Sodium 138 mmol/L (135-145); eGFR > 60.00
== END ==
LOC: OLABLV 10:53
PROVIDERS: ATTENDING PHYSICIAN Internal Medicine Geriatric Medicine
DX: R06.2 Wheezing (principal); R05.1 Acute cough; J06.9 Acute upper respiratory infection, unspecified
CPT/HCPCS: 36415; 80069; 85025